=== PATIENT | male | born 1960 | race Caucasian/White ===

== ENCOUNTER 2018-01-10 17:00 | Observation (INO) ==
[2018-01-10] MEDS ORDERED: 0.9 % SODIUM CHLORIDE 1,000 ML IV ONE ×2 (17:56→20:14)
--- NOTE | 2018-01-10 18:00 | Emergency Department Note ---
Nausea/Vomiting/Diarrhea HPI - General Chief complaint: Nausea/Vomiting/Diarrhea Stated complaint: N/v abd pain Time Seen by Provider: 01/10/18 17:21 Source: patient, family Mode of arrival: wheelchair Limitations: no limitations - History of Present Illness HPI Narrative: This pleasant 57-year-old male comes to the emergency room with significant episodes of dizziness and weakness. He reports that onset began about a month and a half ago and he was seen by his primary care doctor. Episodes include that he seems to have almost a visual turning white and then seems to collapse with weakness. He is not had any major injuries from this but he is actually fallen or collapsed 10-12 times in this time. He was also seen by a neurologist, Dr. Jamie Rosas in [place]. He has been tried on antinausea medications including ondansetron and meclizine. He is also had some middle ear effusion and was given 2 different antibiotics, azithromycin on one occasion and I believe a penicillin on another. Episodes are not associated with any chest pain or palpitations. He feels like he is passing out. He does have some shortness of breath. His dizzy episodes do not seem to occur or be related to sudden changes in position or sudden movements of his head and neck. They are not associated with eating, pain or bowel movements. He today has had significant episodes of dry heaves and has had some of this off and on. As of 2 weeks ago he had already lost 14 pounds. Concern also included if there was a central pathology and he had an MRI done 3 days ago which reportedly was negative. He also suffers from some lower abdominal pain with some constipation or firm stools and this has been chronic. Abdominal pain is some crampy in nature and associated with these episodes. He denies hematochezia. REVIEW OF SYSTEMS: Denies fevers. He has some chills and sweats but this may be some related with his acute anxiety when he starts getting worked up about his multiple symptoms. Denies ear pain or throat pain. Sometimes some throat pain related to the emesis and dry heaves. Denies chest pain or palpitations. Denies cough. Shortness of breath has been during this 1-1/2 month. Denies wheezing or phlegm production. Denies dysuria. Peculiar symptom of not being able to have sensation or feeling of bowels leaving him when he has a bowel movement or urine as it leaves. He does have preserved sensation of needing to go or when he is full. Denies back pain Denies rashes. Denies headaches. Has felt quite weak. Admits to significant anxiety as well as depression.Has significant fatigue. Previously was on thyroid medication but is not currently. He does not recognize having been diagnosed with Graves' disease in the past. - Related Data Home Medications Medication Instructions Recorded Confirmed doxazosin 2 mg tablet 2 mg PO QDAY 11/22/17 01/10/18 gabapentin 400 mg capsule 1,600 mg PO BID cap 11/22/17 01/10/18 insulin aspart U-100 100 unit/mL 10 unit SUB-Q TID ml 11/22/17 01/10/18 subcutaneous solution lisinopril 40 mg tablet 40 mg PO QDAY 11/22/17 01/10/18 metformin 500 mg tablet 1,000 mg PO BID 11/22/17 01/10/18 pioglitazone 45 mg tablet 45 mg PO QDAY 11/22/17 01/10/18 ropinirole 1 mg tablet 1 mg PO TID 11/22/17 01/10/18 venlafaxine ER 37.5 mg 37.5 mg PO BID cap 11/22/17 01/10/18 capsule,extended release 24 hr Previous Rx's Medication Instructions Recorded meclizine 25 mg tablet 25 mg PO QID PRN #90 tab 01/09/18 ondansetron 4 mg disintegrating 4 mg PO Q4H PRN #30 tab 01/09/18 tablet Allergies Allergy/AdvReac Type Severity Reaction Status Date / Time acetaminophen [From Vicodin] AdvReac Intermediate Rash Verified 01/10/18 17:00 hydrocodone [From Vicodin] AdvReac Intermediate Rash Verified 01/10/18 17:00 Past Medical History - Past Medical History Medical history: Reports: CVA (Minor one in 1993), DM (Type II with complications including peripheral neuropathy and is on long-acting insulin Levemir +[id number] sliding scale.), hypertension, thyroid disease (Not on treatment currently), other (Pancreatitis 1996. Restless leg syndrome. Severe peripheral neuropathy in the feet. BPH. Insomnia. Pancreatitis 1996.). Denies: hyperlipidemia, myocardial infarction Psychiatric history: Reports: anxiety, depression Surgical history ED: Reports: orthopedic, other (2 foot surgeries, one shoulder surgery, 1 back surgery and 2 wrist surgeries.) Family history: Reports: cancer (Bladder cancer in father) - Social History smoking status: Former smoker Alcohol use: Reports: None Drug use: Reports: none. Denies: marijuana Physical Exam Limitations: no limitations General appearance: alert, in no apparent distress, malaise (Moderate. Not energetic.) Head: atraumatic, normocephalic Eye: Present: EOMI ENT: mucous membranes dry (Mildly) Neck: Present: trachea midline. Absent: lymphadenopathy, thyromegaly Respiratory: Present: normal lung sounds bilaterally. Absent: respiratory distress, wheezes, stridor, accessory muscle use, prolonged expiratory phase Cardiovascular: Present: regular rate, normal rhythm. Absent: systolic murmur, diastolic murmur Abdominal: Present: soft, tenderness (Mild in the lower quadrants bilaterally and suprapubic area.). Absent: distention, guarding, rebound, rigidity, organomegaly, mass Extremities: Absent: pedal edema, pretibial edema, calf tenderness Back: Absent: CVA tenderness (R), CVA tenderness (L), spinous process tenderness Neurological: Present: alert, oriented X3 Psychiatric: Present: flat affect (Mildly so) Skin: Present: warm, mottled (Of the toes and distal foot on the left.) Course Vital Signs Temperature 97.9 F 01/10/18 17:00 Pulse Rate 102 H 01/10/18 17:00 Respiratory Rate 18 01/10/18 17:00 Blood Pressure 77/54 01/10/18 17:00 Pulse Oximetry (%) 94 01/10/18 17:00 Temperature 97.9 F 01/10/18 17:00 Pulse Rate 94 H 18 18:05 Respiratory Rate 7 L 18 18:05 Blood Pressure 134/109 01/10/18 18:05 Pulse Oximetry (%) 93 01/10/18 18:05 Nausea/Vomiting/Diarrhea - [facility] Narrative Medical decision making narrative: Patient's labs included an improvement in his sodium from yesterday to 132, was 129 yesterday. Chloride also improved to 88 as it was 85 yesterday. Anion gap also improved to 19 as it was 22 yesterday. However, BUN worsened to 35, was 27 and creatinine worsened to 1.7 as it was 1.3. Troponin normal at 0.01. C- reactive protein was 0.5. X-ray demonstrated a question of left parenchymal infiltrate. CT scan did not confirm this. It did demonstrate some calcified coronary artery disease. I discussed these findings and circumstances with hospitalist, Dr. Cheung, who kindly accepted this patient to medical floor observation because of his dehydration, severe dizziness and weakness, inability to ambulate and stand because of these circumstances. Hopefully with fluid resuscitation he can improve. He may have a rather significant or severe autonomic neuropathy. He may have gastroparesis. Pending at this time still is an abdominal x-ray looking for his stool pattern. Additional workup may need to include neurologic assessment of his perineum, may need to get GI workup of his gut. He did have a finding of moderate to severe exophthalmos. Consider obtaining a TSH since this may not have been monitored of recent. - Lab Data Lab results reviewed: Yes I reviewed the patient's lab results. Result diagrams: 01/10/18 18:04 01/10/18 18:04 Lab Results 01/10/18 01/10/18 01/10/18 Range/Units 18:04 18:04 18:04 WBC 10.6 (4.5-11.0) K/mcL RBC 4.11 L (4.50-5.90) M/mcL Hgb 12.9 L (13.5-16.5) g/dL Hct 37.6 L (41.0-55.0) % MCV 91.4 (80.0-100.0) fL MCH 31.5 (26.0-34.0) pg MCHC 34.5 (31.0-36.0) g/dL RDW 13.2 (11.5-14.5) % Plt Count 398 (140-440) K/mcL MPV 8.0 (7.4-10.4) fL Gran % 69.5 (38.0-78.0) % Lymph % (Auto) 19.7 (15.5-49.0) % [place] % (Auto) 10.4 (1.0-12.0) % Eos % (Auto) 0.1 (0.0-7.0) % Baso % (Auto) 0.3 (0.0-2.0) % Gran # 7.3 (1.8-8.0) K/mcL Lymph # (Auto) 2.1 (1.5-4.8) K/mcL [place] # (Auto) 1.1 H (0.1-0.9) K/mcL Eos # (Auto) 0 (0.0-0.7) K/mcL Baso # (Auto) 0 (0.0-0.3) K/mcL Sodium 132 L (133-145) mmol/L Potassium 3.5 (3.3-5.1) mmol/L Chloride 88 L (96-108) mmol/L Carbon Dioxide 25 (22-30) mmol/L Anion Gap 19.0 H (8-16) BUN 35 H (6-20) mg/dl Creatinine 1.7 H (0.7-1.2) mg/dl GFR Calculation 43 Glucose 279 H (70-105) mg/dL Calcium 9.5 (8.6-10.4) mg/dl Magnesium 1.7 (1.6-2.5) mg/dL Total Bilirubin 0.6 (0.0-1.0) mg/dL AST 34 (0-37) U/l ALT 22 (0-40) U/l Alkaline Phosphatase 67 (39-117) U/L Troponin T 0.01 (0-0.03) ng/ml C-Reactive Protein 0.5 (0.0-0.8) mg/dl Total Protein 6.8 (5.9-8.4) gm/dL Albumin 4.2 (3.2-5.2) gm/dL Globulin 2.6 (2.2-3.7) gm/dL Albumin/Globulin Ratio 1.6 (1.0-2.3) - Radiology Data Radiology results reviewed: Yes I reviewed the patient's radiology results. - EKG Data EKG results narrative: No acute coronary syndrome findings. This will be read by a loading unit operator crimping. Disposition Pt seen by [facility] only: No Clinical Impression: Dehydration, Electrolyte disorder, Calcification of coronary artery, Weakness, History of BPH, Exophthalmos of both eyes Nausea & vomiting Qualifiers: Vomiting type: unspecified Vomiting Intractability: intractable Qualified Code( s): R11.2 - Nausea with vomiting, unspecified CRF (chronic renal failure) Qualifiers: Chronic kidney disease stage: stage 2 (mild) Qualified Code(s): N18.2 - Chronic kidney disease, stage 2 (mild) Anemia Qualifiers: Anemia type: unspecified type Qualified Code(s): D64.9 - Anemia, unspecified Abdominal pain Qualifiers: Abdominal location: lower abdomen, unspecified Qualified Code(s): R10.30 - Lower abdominal pain, unspecified Disposition: Xfer As Inpt ([facility]) Condition: Fair Referrals: Susan Dickson [Primary Care Provider] -
--- NOTE | 2018-01-10 18:12 | XRay Report ---
INDICATION: Dyspnea TECHNIQUE: AP chest x-ray,portable COMPARISON: None FINDINGS:Subtle left suprahilar density may be prominent vessels but a left perihilar mass is possible. Chest CT scan is recommended. Lungs are otherwise negative. Right lung is clear. Heart size and vascularity are normal. No pulmonary edema. No pulmonary congestion. No pleural fluid. IMPRESSION: 1. Possible left perihilar parenchymal density. Recommend CT scan 2. Otherwise negative AP portable chest x-ray Interpreted and Authenticated by: Levi Martinez 01/10/18
[2018-01-10] MEDS ORDERED: ONDANSETRON 4 MG/2 ML VIAL IV ONE (18:29)
[2018-01-10 18:37] LABS: Basophils # (Auto) 0 K/mcL (0.0-0.3); Basophils % (Auto) 0.3 % (0.0-2.0); Eosinophils # (Auto) 0 K/mcL (0.0-0.7); Eosinophils % (Auto) 0.1 % (0.0-7.0); Granulocytes % (Auto) 69.5 % (38.0-78.0); Lymphocytes # (Auto) 2.1 K/mcL (1.5-4.8); Lymphocytes % (Auto) 19.7 % (15.5-49.0); Mean Cell Volume 91.4 fL (80.0-100.0); Mean Corpuscular HGB Conc 34.5 g/dL (31.0-36.0); Mean Corpuscular Hemoglobin 31.5 pg (26.0-34.0); Monocytes # (Auto) 1.1 K/mcL (0.1-0.9); Monocytes % (Auto) 10.4 % (1.0-12.0); Platelet Count 398 K/mcL (140-440); RBC 4.11 M/mcL (4.50-5.90); Red Cell Distribution Width 13.2 % (11.5-14.5)
[2018-01-10 19:14] LABS: ALT/SGPT 22 U/l (0-40); Albumin 4.2 gm/dL (3.2-5.2); Albumin/Globulin Ratio 1.6 (1.0-2.3); Alkaline Phosphatase 67 U/L (39-117); Blood Urea Nitrogen 35 mg/dl (6-20); C-Reactive Protein 0.5 mg/dl (0.0-0.8)
--- NOTE | 2018-01-10 19:16 | Cat Scan Report ---
CLINICAL INFORMATION: Smoking history. Cough. Abnormal chest x-ray COMPARISON: Chest x-ray dated 01/10/2018 TECHNIQUE: Axial noncontrast enhanced images through the chest. Sagittally and coronally reformatted images. MIP reformatted images. FINDINGS: Possible left perihilar mass identified on previous chest x-ray. Lungs are negative. No pulmonary parenchymal mass or focal infiltrate. Density on plain radiograph is secondary to vascular structures. There is an 8 mm density adjacent to the left upper lobe pulmonary artery which is probably a lymph node. This is not well visualized on this noncontrast enhanced study. No definite centrilobular emphysema. No bronchiectasis. No honeycombing. No focal abnormality. There is severe calcified atherosclerotic coronary artery disease. This is advanced for age. No pleural fluid. No pericardial fluid. No axillary or supraclavicular adenopathy. Upper abdomen is negative. Thoracic spine is negative. There is multilevel degenerative disc disease. No thoracic compression fractures. IMPRESSION: 1. No left perihilar pulmonary parenchymal mass. Lungs are negative. No parenchymal mass or infiltrate 2. Calcified coronary artery disease The exam was performed using radiation dose optimization techniques including, but not limited to, automated exposure control, adjustment of the mA and/or kV according to patient size and use of iterative reconstruction technique. Interpreted and Authenticated by: Levi Martinez 01/10/18
[2018-01-10] MEDS ORDERED: PROCHLORPERAZINE 10 MG/2 ML VIAL IV ONE (19:52)
--- NOTE | 2018-01-10 20:02 | Internal Med History&Physical ---
Medical - H&P: [facility] Patient information: Note initiated : 01/10/18 at 7:56 pm Service Date, if different from initiated Date: [] Patient: Abdi Reese a 57 y/o M admitted on for N/v abd pain. Chief Complaint: Nausea, vomiting, orthostasis and frequent falls. History of present illness: Mr. Reese is a 57 year old male who presents with months to years of worsening orthostasis and associated post prandial NV. Patient has had frequent falls and and describes overt syncope. Patient has been treated for positional vertigo and treated with meclizine and steroids. Patient states he recently had a MRI head. Patient denies headache or focal weakness. Patient does report positional palpitations. Patient has severe peripheral neuropathy complicating DM. Patient denies previous diagnosis of gastroparesis and has not tried promotility agents to his knowledge. Patient was noted to be orthostatic and have acute kidney injury. Patient is admitted for the same. Discussed with ED physician and dope dry house operator. Patient is seen in the emergency room. Patient's family are present. Discussed diagnosis and planned treatment. Location-generalized and abdomen, severity-severe, duration-months to years but worsening and associated symptoms-as above. All systems: reviewed and no additional remarkable complaints except as stated - Neurological Neurological: Present: disequilibrium, dizziness, frequent falls, lack of coordination, numbness, paresthesias, syncope, tingling, weakness Medical - H&P: H Medical history: DM, HTN, Neuropathy, Depression and CKD stage2 Family history: reviewed and not pertinent Have you smoked in the last 12 months: No Drug use: none Medical - H&P: Meds Home Medications Medication Instructions Recorded Confirmed Type doxazosin 2 mg tablet 2 mg PO QDAY 11/22/17 01/10/18 History gabapentin 400 mg capsule 1,600 mg PO BID cap 11/22/17 01/10/18 History insulin aspart U-100 100 unit/mL 10 unit SUB-Q TID ml 11/22/17 01/10/18 History subcutaneous solution lisinopril 40 mg tablet 40 mg PO QDAY 11/22/17 01/10/18 History metformin 500 mg tablet 1,000 mg PO BID 11/22/17 01/10/18 History pioglitazone 45 mg tablet 45 mg PO QDAY 11/22/17 01/10/18 History ropinirole 1 mg tablet 1 mg PO TID 11/22/17 01/10/18 History venlafaxine ER 37.5 mg 37.5 mg PO BID cap 11/22/17 01/10/18 History capsule,extended release 24 hr meclizine 25 mg tablet 25 mg PO QID PRN #90 tab 01/09/18 01/10/18 Rx ondansetron 4 mg disintegrating 4 mg PO Q4H PRN #30 tab 01/09/18 01/10/18 Rx tablet Allergies Allergy/AdvReac Type Severity Reaction Status Date / Time acetaminophen [From Vicodin] AdvReac Intermediate Rash Verified 01/10/18 17:00 hydrocodone [From Vicodin] AdvReac Intermediate Rash Verified 01/10/18 17:00 Medical - H&P: Exam - Constitutional Vitals: Temp Pulse Resp BP Pulse Ox 97.9 F 88 20 99/73 95 01/10/18 17:00 01/10/18 19:45 01/10/18 19:45 01/10/18 19:45 01/10/18 19:45 General appearance: obese - Head Head exam: Present: atraumatic, normocephalic - Eye Eye exam: Present: EOMI, PERRL Additional comments: No nystagmus - ENT ENT exam: Present: mucous membranes dry - Expanded ENT Exam Mouth exam: Present: dry mucosa - Neck Neck exam: Present: full ROM - Respiratory Respiratory exam: Present: normal respiratory exam - Cardiovascular Cardiovascular exam: Present: systolic murmur, tachycardia - GI/Abdominal GI/Abdominal exam: Present: normal bowel sounds, soft, diminished bowel sounds, hypoactive bowel sounds Additional comments: Non tender and without rebound - Rectal Rectal exam: Present: deferred - Extremities Exam Extremities exam: Present: full ROM Additional comments: Delayed capillary refill - Neurological Exam Neurological exam: Present: alert, oriented X3 - Expanded Neurological Exam Patient oriented to: Present: person, place, time Speech: Present: fluid speech Cerebellar function: finger to nose: Normal Sensory exam: LE 2 point discrimination: Abnormal Left, Abnormal Right - Skin Skin exam: Present: dry Medical - H&P: Reslt - Labs CBC & Chem 7: 01/10/18 18:04 01/10/18 18:04 Labs: Short CBC 01/10/18 Range/Units 18:04 WBC 10.6 (4.5-11.0) K/mcL Hgb 12.9 L (13.5-16.5) g/dL Hct 37.6 L (41.0-55.0) % Plt Count 398 (140-440) K/mcL BMP 01/10/18 18:04 Sodium 132 L Potassium 3.5 Chloride 88 L Carbon Dioxide 25 BUN 35 H Creatinine 1.7 H Glucose 279 H Calcium 9.5 Cardiac Enzymes 01/10/18 Range/Units 18:04 Troponin T 0.01 (0-0.03) ng/ml Liver Function 01/10/18 Range/Units 18:04 Total Bilirubin 0.6 (0.0-1.0) mg/dL AST 34 (0-37) U/l ALT 22 (0-40) U/l Alkaline Phosphatase 67 (39-117) U/L Albumin 4.2 (3.2-5.2) gm/dL - EKG Data EKG shows normal: sinus rhythm Rate: tachycardia Medical - H&P: A/P (1) Acute kidney injury (nontraumatic) Current visit: Yes Status: Acute (2) Syncopal episodes Current visit: Yes Status: Acute (3) Gastroparesis Current visit: Yes Status: Acute - Narrative A/P Narrative: Syncope and acute kidney injury secondary to suspected gastroparesis vs autonomic dysfunction - Observation admission - IVF - Trend labs - No VTE prophylaxis - Trial of Reglan - Hold Metformin - Consider gastric emptying study (outpt)
--- NOTE | 2018-01-10 20:05 | XRay Report ---
CLINICAL INFORMATION: Abdominal pain TECHNIQUE: AP supine abdomen COMPARISON: None. FINDINGS: Bowel gas pattern is unremarkable. No mechanical small bowel obstruction. No dilated gas-filled small bowel. No biliary or portal venous gas. No pneumatosis. No pathologic calcifications. Severe degenerative disc disease in the lower lumbar spine. Sacrum and pelvis are negative IMPRESSION: 1. Nonspecific and nonobstructive bowel gas pattern 2. No focal abnormality Interpreted and Authenticated by: Levi Martinez 01/10/18
[2018-01-10 21:15] LABS: Appearance,Urine HAZY; Bacteria,Urine 0 /hpf (0); Bilirubin,Urine NEG (NEG); Color,Urine AMBER; Glucose,Urine (UA) 150 mg/dL (NEG); Ictotest,Urine NEG (NEG); Leukocyte Esterase,Urine NEG /uL (NEG); Mucus,Urine MANY /hpf (0); Protein,Urine 100 mg/dL (NEG); Specific Gravity,Urine 1.026 (1.000-1.035); Sperm,Urine PRESENT /hpf (ABSENT); Urine Blood NEG mg/dL (<0.03); Urine Hyaline Cast 48 /lpf (0-2); Urine RBC 2 /hpf (0-1); Urine Squamous Epithelial Cell < 1 /hpf (0-4); Urine WBC 0 /hpf (0-4)
[2018-01-10] MEDS: INSULIN LISPRO 1 UNIT/0.01 ML UNIT SQ SCH (21:32)
[2018-01-10] MEDS: NACL 0.9% W/KCL 20MEQ 1,000 ML IV SCH (21:34)
[2018-01-10] MEDS: GABAPENTIN 400 MG CAPSULE PO SCH (22:46)
[2018-01-10] MEDS: VENLAFAXINE 37.5 MG TAB.ER.24H PO SCH (22:46)
[2018-01-10] MEDS: 0.9 % SODIUM CHLORIDE 10 ML SYRINGE IV SCH (22:47)
[2018-01-10] MEDS: rOPINIRole 1 MG TABLET PO SCH (22:47)
[2018-01-10] MEDS: METOCLOPRAMIDE 10 MG TABLET PO SCH (23:05)
[2018-01-11] MEDS ORDERED: 0.9 % SODIUM CHLORIDE 1,000 ML IV ONE (00:54)
[2018-01-11] MEDS: 0.9 % SODIUM CHLORIDE 10 ML SYRINGE IV SCH ×2 (05:17→16:32)
[2018-01-11] MEDS: METOCLOPRAMIDE 10 MG TABLET PO SCH ×5 (05:20→17:31)
[2018-01-11] MEDS: NACL 0.9% W/KCL 20MEQ 1,000 ML IV SCH ×3 (05:22→20:00)
--- NOTE | 2018-01-11 07:43 | Internal Med Progress Note ---
Medical - PN: Subj Patient information: Note initiated : 01/11/18 at 7:41 am Service Date, if different from initiated Date: [] Patient: Abdi Reese 57 y/o M admitted on 01/10/18 for N/v abd pain. Chief Complaint: Patient states his nausea has resolved. Patient had episode of syncope while up to bathroom associated with hypotension last PM. Labs are pending. - Constitutional Vitals: Vital Signs Temp Pulse Resp BP Pulse Ox 97.6 F 85 16 115/65 96 01/11/18 06:51 01/11/18 04:18 01/11/18 06:51 01/11/18 06:51 01/11/18 06:51 Period Temp Pulse Resp BP Sys/Goff Pulse Ox Last 24 Hr 97.6 F-98.8 F 75-102 7-20 53-156/28-109 88-98 Intake and Output 01/10/18 01/11/18 01/11/18 21:59 05:59 13:59 Intake Total 1271 / 1271 1450 / 1450 Output Total 125 / 125 Balance 1271 / 1271 1325 / 1325 Weight 282 lb Intake & Output: Intake & Output 01/10/18 01/11/18 01/11/18 21:59 05:59 13:59 Intake Total 1271 / 1271 1450 / 1450 Output Total 125 / 125 Balance 1271 / 1271 1325 / 1325 Weight 282 lb Intake: IV 1271 / 1271 1000 / 1000 Sodium Chloride 0.9% 1,000 ml @ 1271 / 1271 250 mls/hr IV .Q4H ONE Rx#: [id number] NaCl 0.9% W/KCl 20Meq 1000ML 1, 1000 / 1000 000 ml @ 150 mls/hr IV .Q6H40M [facility] Rx#:[id number] Oral 450 / 450 Output: Urine Catheter Amount 125 / 125 General appearance: obese - Neck Neck exam: Present: full ROM - Respiratory Respiratory exam: Present: normal respiratory exam - Cardiovascular Cardiovascular exam: Present: normal rate and rhythm - GI/Abdominal GI/Abdominal exam: Present: normal bowel sounds, soft, hypoactive bowel sounds - Extremities Exam Extremities exam: Present: full ROM, normal capillary refill - Neurological Exam Neurological exam: Present: alert, oriented X3 - Skin Skin exam: Present: dry Medical - PN: Obj Da - Labs CBC & Chem 7: 01/10/18 18:04 01/10/18 18:04 Labs: Abnormal Lab Results 01/10/18 01/10/18 01/10/18 20:15 18:04 18:04 RBC 4.11 L Hgb 12.9 L Hct 37.6 L [facility] # (Auto) 1.1 H Sodium 132 L Chloride 88 L Anion Gap 19.0 H BUN 35 H Creatinine 1.7 H Glucose 279 H Urine Protein 100 A Urine Glucose (UA) 150 A Urine Ketones 5/tr A Urine Urobilinogen 2.0 A Urine RBC 2 H Hyaline Casts 48 H Urine Mucus Many A Urine Sperm Present A Meds: Medications Diagnostic Test (Pha) (Accu-Chek) 1 each FS ACHS [facility] Gabapentin (Neurontin) 1,600 mg PO BID [facility] Last Admin: 01/10/18 22:46 Dose: Not Given Potassium Chloride/Sodium Chloride (Nacl 0.9% W/Kcl 20meq 1000ml) 1,000 mls @ 150 mls/hr IV .Q6H40M [facility] Last Admin: 01/11/18 05:22 Dose: 150 mls/hr Insulin Human Lispro (Humalog) 10 unit SQ TIDAC [facility] Last Admin: 01/10/18 21:32 Dose: 7 unit Metoclopramide HCl (Reglan) 10 mg PO Q6 [facility] Last Admin: 01/11/18 05:49 Dose: 10 mg Ropinirole HCl (Requip) 1 mg PO TID [facility] Last Admin: 01/10/18 22:47 Dose: Not Given Sodium Chloride (Saline Flush) 10 ml IV Q8 [facility] Last Admin: 01/11/18 05:17 Dose: Not Given Venlafaxine HCl (Effexor Xr) 37.5 mg PO BID [facility] Last Admin: 01/10/18 22:46 Dose: Not Given Medical - PN: A/P - Time Spent With Patient Total time spent is greater than 50% in coordination of care (as documented) at patient's floor/unit and/or counseling patient: (1) Acute kidney injury (nontraumatic) Status: Acute Current Visit: Yes (2) Syncopal episodes Status: Acute Current Visit: Yes (3) Gastroparesis Status: Acute Current Visit: Yes - Narrative A/P Narrative: Gastroparesis with acute kidney injury and recurrent syncope complicating DM - Continue IVF for 24 hours - Trend labs (including todays) - Mobilize - Continue Reglan - Home 01/12/18? Medical - PN: Qual - Stroke Symptom Onset Unknown: No - VTE Deep Vein Thrombosis/Pulmonary Embolism Present on Admission: No
[2018-01-11 08:13] LABS: Blood Urea Nitrogen 39 mg/dl (6-20)
[2018-01-11] MEDS: INSULIN LISPRO 1 UNIT/0.01 ML UNIT SQ SCH ×3 (10:03→17:31)
[2018-01-11] MEDS: GABAPENTIN 400 MG CAPSULE PO SCH ×2 (10:04→21:00)
[2018-01-11] MEDS: VENLAFAXINE 37.5 MG TAB.ER.24H PO SCH ×2 (10:05→21:00)
[2018-01-11] MEDS: rOPINIRole 1 MG TABLET PO SCH ×3 (10:05→21:00)
[2018-01-12] MEDS: VENLAFAXINE 37.5 MG TAB.ER.24H PO SCH (09:19)
[2018-01-12] MEDS: GABAPENTIN 400 MG CAPSULE PO SCH (09:22)
[2018-01-12] MEDS: NACL 0.9% W/KCL 20MEQ 1,000 ML IV SCH ×4 (12:00→18:51)
[2018-01-12] MEDS: INSULIN LISPRO 1 UNIT/0.01 ML UNIT SQ SCH ×3 (12:21→19:38)
[2018-01-12] MEDS: METOCLOPRAMIDE 10 MG TABLET PO SCH (12:21)
[2018-01-12] MEDS: rOPINIRole 1 MG TABLET PO SCH ×2 (12:22→15:58)
--- NOTE | 2018-01-12 13:38 | Discharge Summary ---
Medical - DS: Prov Patient information: Note initiated : 01/12/18 at 11:18 am Service Date, if different from initiated Date: [] Patient: Abdi Reese a 57 y/o M admitted on 01/10/18 for N/v abd pain. Chief Complaint: Patient is eating and ambulatory without N/V, syncope or near syncope. Date of admission: 01/10/18 20:31 Discharge date: 01/12/18 Primary care physician: Susan Dickson Consults: 01/10/18 19:40 Consult to Physician [CONS] Stat Comment: Consulting Provider: Ralph Cheung Reason For Exam: Physician to Consult Medical - DS: Meds - Discharge Medications Prescriptions: Metoclopramide [Reglan] 10 mg PO Q6 #120 tab Active and Home Medications: Home Medications insulin aspart U-100 100 unit/mL subcutaneous solution 10 unit SUB-Q TID ml [History Confirmed 01/10/18 Last Taken Unknown] lisinopril 40 mg tablet 40 mg PO QDAY 11/22/17 [History Confirmed 01/10/18 Last Taken 12/30/17] ropinirole 1 mg tablet 1 mg PO HSP PRN 11/22/17 [History Confirmed 01/10/18 Last Taken 01/09/18 20:00] venlafaxine ER 37.5 mg capsule,extended release 24 hr 37.5 mg PO BID cap [History Confirmed 01/10/18 Last Taken 01/10/18 10:30] Accu-Chek 1 each FS ACHS strip 01/12/18 [Rx Last Taken Unknown] Metoclopramide [Reglan] 10 mg PO Q6 #120 tab 01/12/18 [Rx Last Taken Unknown] Medical - DS: Hosp Hospital course: Mr. Reese is a 57 year old M admitted with syncope, falls persistent N/V and acute kidney injury. Patient was treated with Reglan for gastroparesis and IVF. Patient improved and was ambulatory and not having N/V at discharge. Patient is discahrged to home with plans for follow up with PCP re repeat chemistries and restarting oral diabetic agents. Discharge diagnosis: Gastroparesis - Time Spent with Patient Total time spent providing and/or coordinating discharge services: Medical - DS: Exam - Constitutional Vitals: Vital Signs Temp Pulse Resp BP Pulse Ox 01/11/18 16:00 98.4 F 16 132/73 95 01/11/18 13:10 86 20 114/66 96 01/11/18 13:05 87 20 127/75 94 01/11/18 13:00 98.8 F 78 20 143/74 97 01/11/18 12:00 98.3 F 16 134/75 97 Intake and Output 01/11/18 01/12/18 01/12/18 21:59 05:59 13:59 Intake Total 750 / 750 Output Total 500 / 500 Balance 250 / 250 Intake: Oral 750 / 750 Output: Urine Catheter Amount 500 / 500 Other: Meal Dinner Percent of Meal Consumed 100% Feeding Ability Independent General appearance: no acute distress, obese - GI/Abdominal GI/Abdominal exam: Present: hypoactive bowel sounds - Skin Skin exam: Present: warm Medical - DS: A/P - Patient/Caregiver Discharge Instructions Activity: increase activity as tolerated Diet: Consistent Carbohydrate Prescriptions: Metoclopramide [Reglan] 10 mg PO Q6 #120 tab - Problem Maintenance (1) Acute kidney injury (nontraumatic) Status: Acute (2) Syncopal episodes Status: Acute (3) Gastroparesis Status: Acute - Follow up Plan Follow up with: Susan Dickson [Primary Care Provider] - Disposition: Home, Self-Care Prognosis: Fair Rehab Potential: Good Overall status at discharge: patient is progressing back to baseline Medical - DS: Qual - VTE Deep Vein Thrombosis/Pulmonary Embolism Present on Admission: No
[2018-01-12] MEDS: 0.9 % SODIUM CHLORIDE 10 ML SYRINGE IV SCH ×3 (18:28→19:58)
[2018-01-14 09:35] LABS: Blood Urea Nitrogen 19
== END 2018-01-12 16:55 | disposition home or self-care (01) ==
LOC: ED 17:00 → MEDSUR 17:00
PROVIDERS: ADMIT Internal Medicine; ATTEND Internal Medicine

== ENCOUNTER 2018-02-08 22:35 | Observation (INO) ==
[2018-02-08] MEDS ORDERED: IOPAMIDOL 100 ML BOTTLE IV ONE (22:36)
[2018-02-08] MEDS ORDERED: METOCLOPRAMIDE 10 MG/2 ML VIAL IV ONE (22:51)
[2018-02-08] MEDS ORDERED: PANTOPRAZOLE 40 MG VIAL IV ONE (22:51)
[2018-02-08] MEDS ORDERED: 0.9 % SODIUM CHLORIDE 2,000 ML IV ONE (22:51)
[2018-02-08] MEDS ORDERED: HYDROmorphone 2 MG/ML VIAL IV PRN (22:51)
[2018-02-08] MEDS ORDERED: MEPERIDINE 25 MG/ML SYRINGE IV ONE ×2 (23:06→23:48)
[2018-02-08] MEDS ORDERED: MEPERIDINE 50 MG/ML INJECTION ONE (23:13)
[2018-02-08] MEDS ORDERED: INSULIN REGULAR, HUMAN 1 UNIT/0.01 ML UNIT IV ONE (23:28)
[2018-02-08 23:31] LABS: Basophils # (Auto) 0 K/mcL (0.0-0.3); Basophils % (Auto) 0 % (0.0-2.0); Eosinophils # (Auto) 0 K/mcL (0.0-0.7); Eosinophils % (Auto) 0 % (0.0-7.0); Granulocytes % (Auto) 90.4 % (38.0-78.0); Lymphocytes % (Auto) 7.1 % (15.5-49.0); Mean Cell Volume 89.8 fL (80.0-100.0); Mean Corpuscular Hemoglobin 30.5 pg (26.0-34.0); Monocytes # (Auto) 0.3 K/mcL (0.1-0.9); Monocytes % (Auto) 2.5 % (1.0-12.0); Platelet Count 518 K/mcL (140-440); RBC 4.67 M/mcL (4.50-5.90); Red Cell Distribution Width 13.6 % (11.5-14.5)
[2018-02-08] MEDS ORDERED: hydrALAZINE 20 MG/ML VIAL IV ONE (23:39)
[2018-02-08 23:53] LABS: ALT/SGPT 16 U/l (0-40); Albumin 4.4 gm/dL (3.2-5.2); Albumin/Globulin Ratio 1.1 (1.0-2.3); Alkaline Phosphatase 110 U/L (39-117); Amylase 45 U/L (28-100); Blood Urea Nitrogen 16 mg/dl (6-20); Lipase 18 U/L (7-60)
[2018-02-09] MEDS ORDERED: MEPERIDINE 50 MG/ML INJECTION ONE (00:26)
[2018-02-09] MEDS ORDERED: INSULIN REGULAR, HUMAN 50 UNIT in 0.9 % SODIUM CHLORIDE 99.5 ML IV SCH ×2 (00:45→06:17)
--- NOTE | 2018-02-09 01:13 | Emergency Department Note ---
Abdominal Pain HPI - General Chief Complaint: Abdominal Pain Stated Complaint: n/v abd pain Time Seen by Provider: 02/08/18 22:51 Source: patient Mode of arrival: ambulatory Limitations: no limitations - History of Present Illness HPI Narrative: 57-year-old male diabetic patient with known gastroparesis comes in for nausea and vomiting all day. Having malaise chills and sweats. Severe pain all over his gut area-he states Demerol works better than the allotted for him. He took some 7-Up as well as some other home remedies without help. Last bowel movement was yesterday and was normal. Blood pressure is up significantly - Related Data Home Medications Medication Instructions Recorded Confirmed insulin aspart U-100 100 unit/mL 10 unit SUB-Q TID ml 11/22/17 02/09/18 subcutaneous solution ropinirole 1 mg tablet 1 mg PO HSP PRN 11/22/17 02/09/18 venlafaxine ER 37.5 mg 37.5 mg PO BID cap 11/22/17 02/09/18 capsule,extended release 24 hr Gabapentin [Neurontin] 400 mg PO BID 01/22/18 02/09/18 Zofran ODT 02/08/18 Previous Rx's Medication Instructions Recorded Accu-Chek 1 each FS ACHS strip 01/12/18 Metoclopramide [Reglan] 10 mg PO Q6 #120 tab 01/12/18 Allergies Allergy/AdvReac Type Severity Reaction Status Date / Time acetaminophen [From Vicodin] AdvReac Intermediate Rash Verified 02/08/18 22:40 hydrocodone [From Vicodin] AdvReac Intermediate Rash Verified 02/08/18 22:40 Review of Systems All systems ED: reviewed and negative except as stated. Abdominal Pain PMH - Past Medical History Attestation: Yes: The following information was validated with the patient. Medical history: Reports: CVA (Minor one in 1993), DM (Type II with complications including gastroparesis, kidney disease, peripheral neuropathy and is on long-acting insulin Levemir +[id number] sliding scale.), hypertension, renal disease, thyroid disease (Not on treatment currently), other ( Pancreatitis 1996. Restless leg syndrome. Impetigo. BPH. Insomnia). Denies : hyperlipidemia, myocardial infarction Surgical history ED: Reports: orthopedic, other (Back surgery), other (Surgery for lymphoma) Psychiatric history: Reports: anxiety, depression - Social History Smoking status: Former smoker Alcohol use: Reports: None Drug use: Reports: none. Denies: marijuana Physical Exam Ill-appearing male dry heaving. Normocephalic atraumatic. Conjunctive are clear sclerae white and nonicteric. Exophthalmus. No nasal congestion or discharge. Oropharynx with dry mucous membranes. Neck is supple without lymphadenopathy or thyromegaly. Heart is regular rate and rhythm no murmur appreciated. Lungs are clear to auscultation bilaterally without wheezes rales rhonchi or respiratory distress. Abdomen is soft mildly diffusely tender but especially so the epigastrium. No peritoneal signs or guarding. +2 radial pulse. No pedal edema. Alert oriented able to answer questions appropriately Limitations: no limitations Course Vital Signs Temperature 97.7 F 02/08/18 22:36 Pulse Rate 115 H 02/08/18 22:36 Respiratory Rate 20 02/08/18 22:36 Blood Pressure 220/120 02/08/18 22:36 Pulse Oximetry (%) 97 02/08/18 22:36 Temperature 100.1 F H 02/09/18 06:16 Pulse Rate 100 H 02/09/18 05:05 Respiratory Rate 23 H 02/09/18 06:23 Blood Pressure 189/91 02/09/18 06:16 Pulse Oximetry (%) 95 02/09/18 06:23 Abdominal Pain - Lab Data Lab results reviewed: Yes I reviewed the patient's lab results. Result diagrams: 02/09/18 06:32 02/09/18 06:32 Lab Results 02/08/18 02/08/18 02/08/18 Range/Units 22:55 22:55 22:55 WBC 13.6 H (4.5-11.0) K/mcL RBC 4.67 (4.50-5.90) M/mcL Hgb 14.3 (13.5-16.5) g/dL Hct 41.9 (41.0-55.0) % POC Hct 41.0 (41.0-55.0) % MCV 89.8 (80.0-100.0) fL MCH 30.5 (26.0-34.0) pg MCHC 34.0 (31.0-36.0) g/dL RDW 13.6 (11.5-14.5) % Plt Count 518 H (140-440) K/mcL MPV 7.8 (7.4-10.4) fL Gran % 90.4 H (38.0-78.0) % Lymph % (Auto) 7.1 L (15.5-49.0) % [place] % (Auto) 2.5 (1.0-12.0) % Eos % (Auto) 0 (0.0-7.0) % Baso % (Auto) 0 (0.0-2.0) % Gran # 12.3 H (1.8-8.0) K/mcL Lymph # (Auto) 1.0 L (1.5-4.8) K/mcL [place] # (Auto) 0.3 (0.1-0.9) K/mcL Eos # (Auto) 0 (0.0-0.7) K/mcL Baso # (Auto) 0 (0.0-0.3) K/mcL VBG Lactic Acid 3.1 H (0.5-2.2) mmol/L POC Sodium 129 L (133-145) mmol/L Sodium 128 L (133-145) mmol/L POC Potassium 3.7 (3.3-5.1) mmol/L Potassium 3.8 (3.3-5.1) mmol/L POC Chloride 92 L (96-108) mmol/L Chloride 83 L (96-108) mmol/L Carbon Dioxide 20 L (22-30) mmol/L POC Total CO2 22 (22-30) mmol/L Anion Gap 25.0 H (8-16) POC BUN 17 (6-20) mg/dl BUN 16 (6-20) mg/dl Creatinine 1.1 (0.7-1.2) mg/dl POC Creatinine 0.8 (0.7-1.2) mg/dl GFR Calculation 73 Glucose 480 H* (70-105) mg/dL POC Glucose 510 H* (70-105) mg/dL Calcium 10.3 (8.6-10.4) mg/dl POC WB Ioniz Calcium 0.99 L (1.16-1.32) mmol/L Total Bilirubin 0.6 (0.0-1.0) mg/dL AST 17 (0-37) U/l ALT 16 (0-40) U/l Alkaline Phosphatase 110 (39-117) U/L Total Protein 8.4 (5.9-8.4) gm/dL Albumin 4.4 (3.2-5.2) gm/dL Globulin 4.0 H (2.2-3.7) gm/dL Albumin/Globulin Ratio 1.1 (1.0-2.3) Amylase 45 (28-100) U/L Lipase 18 (7-60) U/L Beta-Hydroxybutyrate (< 0.27) mmol/L Urine Color Urine Appearance Urine pH (5.0-9.0) Ur Specific [place] (1.000-1.035) Urine Protein (NEG) mg/dL Urine Glucose (UA) (NEG) mg/dL Urine Ketones (NEG) mg/dL Urine Occult Blood (<0.03) mg/dL Urine Nitrate (NEG) Urine Bilirubin (NEG) mg/dL Urine Urobilinogen (NEG) mg/dL Ur Leukocyte Esterase (NEG) /uL Urine RBC (0-1) /hpf Urine WBC (0-4) /hpf Ur Squamous Epith Cells (0-4) /hpf Urine Bacteria (0) /hpf Hyaline Casts (0-2) /lpf Urine Mucus (0) /hpf Ur Culture Indicated? Urine Opiates Screen (NONDETECTED) Ur Oxycodone Screen (NONDETECTED) Urine Methadone Screen (NONDETECTED) Ur Barbiturates Screen (NONDETECTED) Ur Phencyclidine Scrn (NONDETECTED) Ur Amphetamines Screen (NONDETECTED) U Benzodiazepines Scrn (NONDETECTED) Urine Cocaine Screen (NONDETECTED) U Marijuana (THC) Screen (NONDETECTED) 02/08/18 02/09/18 02/09/18 Range/Units 22:55 00:45 03:10 WBC (4.5-11.0) K/mcL RBC (4.50-5.90) M/mcL Hgb (13.5-16.5) g/dL Hct (41.0-55.0) % POC Hct 35.0 L (41.0-55.0) % MCV (80.0-100.0) fL MCH (26.0-34.0) pg MCHC (31.0-36.0) g/dL RDW (11.5-14.5) % Plt Count (140-440) K/mcL MPV (7.4-10.4) fL Gran % (38.0-78.0) % Lymph % (Auto) (15.5-49.0) % [place] % (Auto) (1.0-12.0) % Eos % (Auto) (0.0-7.0) % Baso % (Auto) (0.0-2.0) % Gran # (1.8-8.0) K/mcL Lymph # (Auto) (1.5-4.8) K/mcL [place] # (Auto) (0.1-0.9) K/mcL Eos # (Auto) (0.0-0.7) K/mcL Baso # (Auto) (0.0-0.3) K/mcL VBG Lactic Acid (0.5-2.2) mmol/L POC Sodium 134 (133-145) mmol/L Sodium (133-145) mmol/L POC Potassium 3.3 (3.3-5.1) mmol/L Potassium (3.3-5.1) mmol/L POC Chloride 94 L (96-108) mmol/L Chloride (96-108) mmol/L Carbon Dioxide (22-30) mmol/L POC Total CO2 24 (22-30) mmol/L Anion Gap (8-16) POC BUN 16 (6-20) mg/dl BUN (6-20) mg/dl Creatinine (0.7-1.2) mg/dl POC Creatinine 0.8 (0.7-1.2) mg/dl GFR Calculation Glucose (70-105) mg/dL POC Glucose 328 H (70-105) mg/dL Calcium (8.6-10.4) mg/dl POC WB Ioniz Calcium 1.09 L (1.16-1.32) mmol/L Total Bilirubin (0.0-1.0) mg/dL AST (0-37) U/l ALT (0-40) U/l Alkaline Phosphatase (39-117) U/L Total Protein (5.9-8.4) gm/dL Albumin (3.2-5.2) gm/dL Globulin (2.2-3.7) gm/dL Albumin/Globulin Ratio (1.0-2.3) Amylase (28-100) U/L Lipase (7-60) U/L Beta-Hydroxybutyrate 1.80 H (< 0.27) mmol/L Urine Color Yellow Urine Appearance Clear Urine pH 7.0 (5.0-9.0) Ur Specific [place] 1.017 (1.000-1.035) Urine Protein 100 A (NEG) mg/dL Urine Glucose (UA) >=500 A (NEG) mg/dL Urine Ketones 20 A (NEG) mg/dL Urine Occult Blood Neg (<0.03) mg/dL Urine Nitrate Neg (NEG) Urine Bilirubin Neg (NEG) mg/dL Urine Urobilinogen Neg (NEG) mg/dL Ur Leukocyte Esterase Neg (NEG) /uL Urine RBC 1 (0-1) /hpf Urine WBC 1 (0-4) /hpf Ur Squamous Epith Cells 0 (0-4) /hpf Urine Bacteria 0 (0) /hpf Hyaline Casts 6 H (0-2) /lpf Urine Mucus Few (0) /hpf Ur Culture Indicated? No Urine Opiates Screen (NONDETECTED) Ur Oxycodone Screen (NONDETECTED) Urine Methadone Screen (NONDETECTED) Ur Barbiturates Screen (NONDETECTED) Ur Phencyclidine Scrn (NONDETECTED) Ur Amphetamines Screen (NONDETECTED) U Benzodiazepines Scrn (NONDETECTED) Urine Cocaine Screen (NONDETECTED) U Marijuana (THC) Screen (NONDETECTED) 02/09/18 Range/Units 03:10 WBC (4.5-11.0) K/mcL RBC (4.50-5.90) M/mcL Hgb (13.5-16.5) g/dL Hct (41.0-55.0) % POC Hct (41.0-55.0) % MCV (80.0-100.0) fL MCH (26.0-34.0) pg MCHC (31.0-36.0) g/dL RDW (11.5-14.5) % Plt Count (140-440) K/mcL MPV (7.4-10.4) fL Gran % (38.0-78.0) % Lymph % (Auto) (15.5-49.0) % [place] % (Auto) (1.0-12.0) % Eos % (Auto) (0.0-7.0) % Baso % (Auto) (0.0-2.0) % Gran # (1.8-8.0) K/mcL Lymph # (Auto) (1.5-4.8) K/mcL [place] # (Auto) (0.1-0.9) K/mcL Eos # (Auto) (0.0-0.7) K/mcL Baso # (Auto) (0.0-0.3) K/mcL VBG Lactic Acid (0.5-2.2) mmol/L POC Sodium (133-145) mmol/L Sodium (133-145) mmol/L POC Potassium (3.3-5.1) mmol/L Potassium (3.3-5.1) mmol/L POC Chloride (96-108) mmol/L Chloride (96-108) mmol/L Carbon Dioxide (22-30) mmol/L POC Total CO2 (22-30) mmol/L Anion Gap (8-16) POC BUN (6-20) mg/dl BUN (6-20) mg/dl Creatinine (0.7-1.2) mg/dl POC Creatinine (0.7-1.2) mg/dl GFR Calculation Glucose (70-105) mg/dL POC Glucose (70-105) mg/dL Calcium (8.6-10.4) mg/dl POC WB Ioniz Calcium (1.16-1.32) mmol/L Total Bilirubin (0.0-1.0) mg/dL AST (0-37) U/l ALT (0-40) U/l Alkaline Phosphatase (39-117) U/L Total Protein (5.9-8.4) gm/dL Albumin (3.2-5.2) gm/dL Globulin (2.2-3.7) gm/dL Albumin/Globulin Ratio (1.0-2.3) Amylase (28-100) U/L Lipase (7-60) U/L Beta-Hydroxybutyrate (< 0.27) mmol/L Urine Color Urine Appearance Urine pH (5.0-9.0) Ur Specific [place] (1.000-1.035) Urine Protein (NEG) mg/dL Urine Glucose (UA) (NEG) mg/dL Urine Ketones (NEG) mg/dL Urine Occult Blood (<0.03) mg/dL Urine Nitrate (NEG) Urine Bilirubin (NEG) mg/dL Urine Urobilinogen (NEG) mg/dL Ur Leukocyte Esterase (NEG) /uL Urine RBC (0-1) /hpf Urine WBC (0-4) /hpf Ur Squamous Epith Cells (0-4) /hpf Urine Bacteria (0) /hpf Hyaline Casts (0-2) /lpf Urine Mucus (0) /hpf Ur Culture Indicated? Urine Opiates Screen None detected (NONDETECTED) Ur Oxycodone Screen None detected (NONDETECTED) Urine Methadone Screen None detected (NONDETECTED) Ur Barbiturates Screen None detected (NONDETECTED) Ur Phencyclidine Scrn None detected (NONDETECTED) Ur Amphetamines Screen None detected (NONDETECTED) U Benzodiazepines Scrn None detected (NONDETECTED) Urine Cocaine Screen None detected (NONDETECTED) U Marijuana (THC) Screen Suspect positive A (NONDETECTED) Arterial blood gas shows pH 7.56 PCO2 30 PO2 98 and a lactic acid of 1.2-this was done 2 hours after initial labs - Radiology Data Radiology results reviewed: Yes I reviewed the patient's radiology results. X-ray of the abdomen shows nonspecific bowel gas pattern As the x-ray was unrevealing CT scan of the abdomen and pelvis was done to rule out surgical causes of significant belly pain in this diabetic gastroparesis. CT is indeed also unrevealing with no acute cause for his belly pain seen Disposition Pt seen by DIRECTOR REGULATORY AFFAIRS/PA only: No Clinical Impression: Gastroparesis DKA (diabetic ketoacidosis) Qualifiers: Diabetes mellitus type: type 2 Diabetes mellitus complication detail: without coma Qualified Code(s): E11.10 - Type 2 diabetes mellitus with ketoacidosis without coma Summary: After initial exam and interview patient is worked up with laboratory and x- ray. Pain was initially treated with Demerol per request but then changed over to morphine due to Dilaudid shortage. Reglan given for gastroparesis and nausea. IV fluids started Found to have elevated blood glucose and anion gap-patient is in DKA. Fluids started and bolus of insulin given. Then patient started on insulin drip. Repeat Chem-8 and Accu-Cheks shows patient is trending in the right direction. X-ray of the abdomen is unrevealing. CT scan of abdomen pelvis was similarly unrevealing Discussed this case with Dr. Ding, the hospitalist. He agreed to accept patient for further inpatient care Disposition: Xfer As Inpt ([facility]) Condition: Serious
[2018-02-09] MEDS ORDERED: hydrALAZINE 20 MG/ML VIAL IV ONE (01:25)
[2018-02-09] MEDS ORDERED: HYDROmorphone 2 MG/ML VIAL IV PRN (01:25)
[2018-02-09] MEDS ORDERED: 0.9 % SODIUM CHLORIDE 1,000 ML IV ONE (02:01)
[2018-02-09 03:48] LABS: Appearance,Urine CLEAR; Bacteria,Urine 0 /hpf (0); Bilirubin,Urine NEG (NEG); Color,Urine YELLOW; Glucose,Urine (UA) >=500 mg/dL (NEG); Leukocyte Esterase,Urine NEG /uL (NEG); Mucus,Urine FEW /hpf (0); Protein,Urine 100 mg/dL (NEG); Specific Gravity,Urine 1.017 (1.000-1.035); Urine Blood NEG mg/dL (<0.03); Urine Hyaline Cast 6 /lpf (0-2); Urine RBC 1 /hpf (0-1); Urine Squamous Epithelial Cell 0 /hpf (0-4); Urine WBC 1 /hpf (0-4); Urobilinogen,Urine NEG (NEG)
[2018-02-09] MEDS ORDERED: 0.9 % SODIUM CHLORIDE 1,000 ML IV SCH ×3 (04:15→17:29)
[2018-02-09] MEDS ORDERED: ONDANSETRON 4 MG/2 ML VIAL IV ONE (04:30)
[2018-02-09] MEDS ORDERED: cloNIDine HCL 0.1 MG TABLET PO PRN ×2 (06:17→17:29)
[2018-02-09 06:41] LABS: Amphetamine Screen,Urine NONE DETECTED (NONDETECTED); Benzodiazepines Screen,Urine NONE DETECTED (NONDETECTED); Cocaine Screen,Urine NONE DETECTED (NONDETECTED); Opiate Screen,Urine NONE DETECTED (NONDETECTED); Oxycodone, Urine Screen NONE DETECTED (NONDETECTED)
[2018-02-09] MEDS: METOCLOPRAMIDE 10 MG/2 ML VIAL IV SCH ×3 (06:50→18:45)
[2018-02-09] MEDS ORDERED: METOCLOPRAMIDE 10 MG/2 ML VIAL ONE ×2 (06:52→18:24)
[2018-02-09] MEDS: 0.9 % SODIUM CHLORIDE 10 ML SYRINGE IV SCH ×3 (07:04→21:12)
[2018-02-09 07:15] LABS: Basophils # (Auto) 0 K/mcL (0.0-0.3); Basophils % (Auto) 0 % (0.0-2.0); Eosinophils # (Auto) 0 K/mcL (0.0-0.7); Eosinophils % (Auto) 0 % (0.0-7.0); Granulocytes % (Auto) 87.9 % (38.0-78.0); Lymphocytes # (Auto) 0.8 K/mcL (1.5-4.8); Lymphocytes % (Auto) 6.3 % (15.5-49.0); Mean Cell Volume 90.6 fL (80.0-100.0); Mean Corpuscular Hemoglobin 30.8 pg (26.0-34.0); Monocytes # (Auto) 0.8 K/mcL (0.1-0.9); Monocytes % (Auto) 5.8 % (1.0-12.0); Platelet Count 455 K/mcL (140-440); RBC 4.08 M/mcL (4.50-5.90); Red Cell Distribution Width 13.9 % (11.5-14.5)
[2018-02-09] MEDS ORDERED: ONDANSETRON 4 MG/2 ML VIAL IV PRN (07:39)
[2018-02-09] MEDS ORDERED: LABETALOL 5 MG/ML ML IV ONE ×2 (07:39→07:43)
[2018-02-09] MEDS ORDERED: LABETALOL 5 MG/ML ML IV PRN ×2 (07:43→17:29)
[2018-02-09 07:48] LABS: ALT/SGPT 13 U/l (0-40); Albumin/Globulin Ratio 1.2 (1.0-2.3); Alkaline Phosphatase 88 U/L (39-117); Beta Hydroxybutyrate 0.08 mmol/L (< 0.27); Bilirubin,Direct < 0.2 mg/dL (0.0-0.3); Blood Urea Nitrogen 14 mg/dl (6-20); Gamma Glutamyl Transpeptidase 20 U/L (8-61); Uric Acid 5.6 mg/dL (2.5-8.0)
[2018-02-09] MEDS ORDERED: SODIUM CHLORIDE 0.9% IV SCH (08:00)
[2018-02-09] MEDS ORDERED: ERYTHROMYCIN LACTOBIONATE IV SCH (08:00)
[2018-02-09] MEDS ORDERED: MAGNESIUM SULFATE 2 GM/50 ML BAG IV ONE (08:01)
[2018-02-09] MEDS: 0.9 % SODIUM CHLORIDE 1,000 ML IV SCH ×4 (08:19→17:11)
--- NOTE | 2018-02-09 08:47 | XRay Report ---
HISTORY: Reason for Exam:epigastric pain. vomiting FINDINGS: The bowel gas pattern is normal. The stomach is decompressed. No free intra-abdominal air is present. There is no apparent soft tissue mass or abnormal calcification. Degenerative disc disease and arthritis are present at L3-4 and L4-5. IMPRESSION: Normal exam Interpreted and Authenticated by: You Castaneda 02/09/18
--- NOTE | 2018-02-09 08:57 | Cat Scan Report ---
CLINICAL INFORMATION: Reason for Exam:abdominal pain, lactic acidosis COMPARISON: None. TECHNIQUE: Following oral contrast in the injection of intravenous contrast the patient was scanned during the portal venous phase from the diaphragm through the symphysis pubis. Sagittal and coronal reformats were created.. Radiation exposure was limited using dose reduction technology. FINDINGS: The liver has mild generalized fatty infiltration. The overall size is within normal limits and there is no evidence of a mass. The bile ducts are nondilated. The gallbladder appears normal and there are no stones or thickening of the wall. The spleen is normal in size and homogeneous. There is no mass or inflammation in the pancreas. The adrenals are normal. There is stranding of the perirenal fat along the inferior portion of the left kidney. There is also an exophytic simple cyst along the lateral border of the lower pole which measures 1.2 cm. No kidney stone, mass or hydronephrosis are present in either kidney. The ureters are decompressed. The oral contrast passed through normal small intestine into the proximal colon without obstruction. The appendix is noninflamed. The wall of the intestine is normal in thickness and there is no evidence of edema or inflammation. No diverticula are present. Urinary bladder is normally distended and there are no intraluminal filling defects. The prostate is normal in size and contains multiple coarse calcifications in the transitional zone. Seminal vesicles are normal. There are few calcified plaques along the wall of the mid and distal abdominal aorta. There is no aneurysm, dissection, stenosis or thrombosis of the abdominal arteries. No ascites or abscess are present. A laminotomy defect is present in the right side at L4. Severe degenerative disc disease and arthritis are present at T11-12, L3-4, L4-5 and L5-S1. IMPRESSION: Nonspecific stranding along the lower pole of the left kidney. This may be chronic fibrosis or an acute inflammatory reaction. There is no edema of the renal parenchyma to suggest pyelonephritis. Interpreted and Authenticated by: You Castaneda 02/09/18
[2018-02-09] MEDS ORDERED: HEPARIN 5,000 UNIT/ML VIAL SQ SCH (09:00)
[2018-02-09] MEDS ORDERED: PANTOPRAZOLE 40 MG VIAL IV SCH (09:00)
[2018-02-09] MEDS ORDERED: POTASSIUM CHLORIDE 40 MEQ in DEXTROSE 5% IN WATER 500 ML IV ONE (09:00)
[2018-02-09] MEDS ORDERED: LISINOPRIL 20 MG TABLET PO SCH (09:00)
--- NOTE | 2018-02-09 09:01 | XRay Report ---
HISTORY: Reason for Exam:leucocytosis FINDINGS: Lungs are clear and well expanded. The heart size, mediastinum, justus are normal. There are two small metal anchors in the right glenoid. IMPRESSION: Normal chest Interpreted and Authenticated by: You Castaneda 02/09/18
[2018-02-09] MEDS ORDERED: INSULIN GLARGINE, HUMAN 1 UNIT/0.01 ML SQ SCH (09:45)
--- NOTE | 2018-02-09 11:07 | Internal Med History&Physical ---
Medical - H&P: HPI Patient information: Note initiated : 02/09/18 at 11:04 am Service Date, if different from initiated Date: [] Patient: Abdi Reese 57 y/o M admitted on 02/09/18 for n/v abd pain. Chief Complaint: [] History of present illness: Mr. Reese is a 57 year old pleasant male presents to the emergency room overnight with complaints of abdominal pain nausea and vomiting going on for the last 1 day. He missed his dose of insulin yesterday. The patient notes that his symptoms started on Saturday, lower abdominal pain, cramping like, no aggravating or relieving factors, associated with significant nausea vomiting. Unable to tolerate any p.o. diet. The patient therefore came to the hospital for further evaluation. The patient was admitted to the hospital approximately 3 or 4 weeks ago, with similar complaints, was diagnosed with diabetic gastroparesis, and started on Reglan. The patient has not had an endoscopy done. According to the CT scan done in the previous hospitalization there was some thickening of the lower esophageal region. The patient underwent an CT scan this visit and there was no comment made on the esophagus. No acute intra- abdominal pathology noted. The patient denies any gastric empty study performed. In the emergency room, patient was afebrile 97.8, heart rate 103, blood pressure 189/91, saturating 95% on room air. He had elevated WBC count at 13.6, hemoglobin 14.3, platelet 518. Patient's sodium was 128, potassium 3.8 chloride 83 bicarb 20 BUN 16 creatinine 1.1 glucose level very elevated at 480. He had an anion gap of 25. Lactic acid elevated at 3.1, TSH 2.27. Pro-calcitonin low at 0.1. Patient got some IV fluids and an ABG was done which showed pH of 7.56, PCO2 of 30, PO2 98 and lactic acid 1.2. Chest x-ray done this morning does not show any acute infiltrates. Given elevated hydroxybutyrate, high anion gap and elevated glucose patient was put on an insulin drip and admitted to the hospital with a diagnosis of DKA. All systems: reviewed and no additional remarkable complaints except as stated ( as per HPI, 10 system ros done) Medical - H&P: PMH Medical history: DM Neuropathy ckd htn hld Family history: reviewed and not pertinent Social history: denies etoh, denies thc use, noted daughter smokes therefore urine test is positive Medical - H&P: Meds Home Medications Medication Instructions Recorded Confirmed Type insulin aspart U-100 100 unit/mL 10 unit SUB-Q TID ml 11/22/17 02/09/18 History subcutaneous solution ropinirole 1 mg tablet 1 mg PO HSP PRN 11/22/17 02/09/18 History Accu-Chek 1 each FS ACHS strip 01/12/18 02/09/18 Rx Metoclopramide [Reglan] 10 mg PO Q6 #120 tab 01/12/18 02/09/18 Rx Gabapentin [Neurontin] 400 mg PO BID 01/22/18 02/09/18 History Zofran ODT 02/08/18 History Venlafaxine [Effexor] 37.5 mg PO BID 02/09/18 02/09/18 History Allergies Allergy/AdvReac Type Severity Reaction Status Date / Time acetaminophen [From Vicodin] AdvReac Intermediate Rash Verified 02/08/18 22:40 hydrocodone [From Vicodin] AdvReac Intermediate Rash Verified 02/08/18 22:40 Medical - H&P: Exam - Constitutional Vitals: Temp Pulse Resp BP Pulse Ox 100.1 F H 90 26 H 143/108 94 02/09/18 06:16 02/09/18 10:47 02/09/18 10:02 02/09/18 10:02 02/09/18 10:47 Exam: GENERAL: The patient is a well-developed, well-nourished in no apparent distress. Is alert and oriented x3. VITAL SIGNS: Reviewed and as noted elsewhere. HEENT: Head is normocephalic and atraumatic. Extraocular muscles are intact. Pupils are equal, round, and reactive to light. Nares appeared normal. Mouth appears any without lesions. Mucous membranes are moist. NECK: Normal to inspection, Supple, No lymphadenopathy or thyromegaly. LUNGS: Air entry equal on both sides, no wheezing, crackles or rhonchi noted. No accessory muscles of respiration HEART: Regular rate and rhythm normal, S1 and S2 heard, no Gallop, S3 or Rub Noted, No Gross murmur heard. ABDOMEN: Soft, estrella lower abdomen tenderness in both rlq and llq abdomen is nondistended. Positive bowel sounds. No hepatosplenomegaly was noted. No guarding or rigidity EXTREMITIES: No cyanosis, clubbing, rash, lesions or edema. NEUROLOGIC: Cranial nerves II through XII are grossly intact. Motor and Sensory System Grossly Intact PSYCHIATRIC: Normal affect, Normal Mood. Appropriate Behavior. SKIN: No ulceration or wounds noted, No jaundice, No rash noted. Medical - H&P: Reslt - Labs CBC & Chem 7: 02/09/18 06:32 02/09/18 06:32 Labs: Short CBC 02/08/18 02/09/18 Range/Units 22:55 06:32 WBC 13.6 H 13.5 H (4.5-11.0) K/mcL Hgb 14.3 12.6 L (13.5-16.5) g/dL Hct 41.9 37.0 L (41.0-55.0) % Plt Count 518 H 455 H (140-440) K/mcL BMP 02/08/18 02/09/18 22:55 06:32 Sodium 128 L 132 L Potassium 3.8 3.0 L Chloride 83 L 89 L Carbon Dioxide 20 L 27 BUN 16 14 Creatinine 1.1 0.9 Glucose 480 H* 178 H Calcium 10.3 9.1 Liver Function 02/08/18 02/09/18 Range/Units 22:55 06:32 Total Bilirubin 0.6 0.3 (0.0-1.0) mg/dL Direct Bilirubin < 0.2 (0.0-0.3) mg/dL GGT 20 (8-61) U/L AST 17 15 (0-37) U/l ALT 16 13 (0-40) U/l Alkaline Phosphatase 110 88 (39-117) U/L Albumin 4.4 4.0 (3.2-5.2) gm/dL Urine 02/09/18 Range/Units 03:10 Urine Color Yellow Urine Appearance Clear Urine pH 7.0 (5.0-9.0) Ur Specific [place] 1.017 (1.000-1.035) Urine Protein 100 A (NEG) mg/dL Urine Glucose (UA) >=500 A (NEG) mg/dL Medical - H&P: A/P - Narrative A/P Narrative: A//P DKA- Mild, resolved this AM, start on sq insulin, and continue IVF, start on lantus, ssi regime and monitor glucose, beta hydroxybutyrate is neg this AM, pt wants to try oral meals Diabetic gastroparesis- Has significant neuropathy so this is likely diagnosis of his nausea and vomiting, he has not had an EGD yet, Will see if we can get this done this visit. Dr Dawkins will evaluate. Reglan for nausea, no IV erythromycin available, if able to tolerate po we can try oral erythromycin. Utox is positive for thc, pt admits to use 2 weeks ago, blames smoking by daugther for his positive utox. HTN- uncontrolled bp, was on lisinopril in the past, which was stopped likely for worsening renal function, it seems his kidneys are back to normal resume same, prn labetalol for now Metabolic alkalosis/ resp alkalosis/ HAGMA- resolving with treatment of underlying etiology Neuropaty- on gabapentin, continue same, bladder incontinuese due to same? hypomagnesmia/hypokalemia- replace DVT - hep sq diet clear liquid Full code Obs status, anticipate d/c tomorrow if able to tolerate po diet well, and we are able to get the EGD done. Medical - H&P: Qual - VTE Deep Vein Thrombosis/Pulmonary Embolism Present on Admission: No
[2018-02-09] MEDS ORDERED: DEXTROSE 31 GM ORAL.SUSP PO PRN ×2 (11:10→17:29)
[2018-02-09] MEDS ORDERED: DEXTROSE 50% 50 ML VIAL IV PRN ×2 (11:10→17:29)
[2018-02-09] MEDS: INSULIN LISPRO 1 UNIT/0.01 ML UNIT SQ SCH ×2 (12:20→17:26)
--- NOTE | 2018-02-09 13:43 | General Surgery Consult Note ---
History of Present Illness Patient information: Note initiated : 02/09/18 at 1:39 pm Service Date, if different from initiated Date: [] Patient: Abdi Reese 57 y/o M admitted on 02/09/18 for n/v abd pain. Chief Complaint: [] Reason for consult: abdominal pain Requesting physician: Ronen Ding History of present illness: 57-year-old male with a long history of recurrent episodes of postprandial vomiting and dry heaves. He has had for dizziness to the outpatient clinic or emergency room over the past month. He has associated fever chills and dizziness. It started in early December when he was diagnosed with gastroparesis. He had multiple episodes of dry heaves without actual vomiting. He has been treated with Reglan in the past with good results but for some reason it was not continued. He has not had diarrhea. He presents with similar history with inability to keep food down over the past few days. He was severely hyperglycemic with DKA which probably contributed to his abdominal pain. The patient is improved at this time. He is not having true gastric emptying study performed. He is being seen for consideration for upper endoscopy. Review of Systems - Constitutional fatigue, malaise, weakness, weight loss - EENT Nose, mouth and throat: dizziness - Cardiovascular orthopnea, palpatations, rapid heart rate, no chest pain at rest, no dyspnea on exertion, no edema - Respiratory no dyspnea on exertion, no wheezing, no pain on inspirtation - Gastrointestinal abdominal pain, bloating, cramping, dyspepsia, early satiety, heartburn, nausea , vomiting - Genitourinary urinary hesitancy, urinary incontinence, urinary urgency - Musculoskeletal arthralgias, back pain, myalgias, numbness - Integumentary no changing lesions, no new lesions, no pruritus, no rash - Neurological abnormal gait, abnormal hearing, burning sensations, disequilibrium, frequent falls, lack of coordination, loss of vision, numbness, restless legs, tremor(s) , weakness, other visual disturbances - Psychiatric anhedonia, anxiety (assessment gastric emptying study Reglan works for him.), tactile, no suicidal ideation (lidocaine good) - Endocrine fatigue, palpitations (sheis a well-developed,), polydipsia, polyphagia, polyuria - Hematologic/Lymphatic no easy bleeding, no easy bruising, no lymphadenopathy - Allergic/Immunologic no tongue swelling, no throat swelling, no uticaria, no wheezing, no lip swelling Past History Past medical history: Diabetes mellitus 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 Hypertension Chronic Kidney Disease BPH Decreased Vision Past surgical history: L4-5 back surgery Right shoulder surgery Bilateral carpal tunnel release Surgery on sheet 2 Removal of cutaneous than lipomas 2 Past family history: Father age 72 due to kidney cancer Mother age 56 due to complications of automobile accident 6 siblings with lupus ,hypertension and diabetes Past social history: Denies tobacco use ALCOHOL USE OCCASIONAL MARIJUANA USE tox screen is positive Medications and Allergies Home Medications Medication Instructions Recorded Confirmed Type insulin aspart U-100 100 unit/mL 10 unit SUB-Q TID ml 11/22/17 02/09/18 History subcutaneous solution ropinirole 1 mg tablet 1 mg PO HSP PRN 11/22/17 02/09/18 History Accu-Chek 1 each FS ACHS strip 01/12/18 02/09/18 Rx Metoclopramide [Reglan] 10 mg PO Q6 #120 tab 01/12/18 02/09/18 Rx Gabapentin [Neurontin] 400 mg PO BID 01/22/18 02/09/18 History Zofran ODT 02/08/18 History Venlafaxine [Effexor] 37.5 mg PO BID 02/09/18 02/09/18 History Allergies Allergy/AdvReac Type Severity Reaction Status Date / Time acetaminophen [From Vicodin] AdvReac Intermediate Rash Verified 02/08/18 22:40 hydrocodone [From Vicodin] AdvReac Intermediate Rash Verified 02/08/18 22:40 Exam Temp Pulse Resp BP Pulse Ox 99.5 F H 95 H 18 186/80 94 02/09/18 11:44 02/09/18 13:05 02/09/18 11:44 02/09/18 13:05 02/09/18 13:05 - General physical appearance well developed, well nourished, no distress - Eyes PERRL, normal ocular movement - ENT normal pinna, normal nares, normal mucosa, no hearing loss, no congestion - Head Head exam IM: Present: atraumatic, normal inspection, normocephalic - Neck no masses, no bruits, trachea midline, no lymphadectomy, no venous distension - Cardiovascular Cardiovascular exam IM: Present: normal rate and rhythm, RRR, +S1, +S2. Absent : JVD, tachycardia - Respiratory normal expansion, normal respiratory effort, clear to percussion, clear to auscultation - Abdomen Abdomen: Present: soft, tender (mild mid abdominal tenderness to deep palpation) , bowel sounds Hernia: Present: none - Genitourinary Present: normal penis with no external lesions - Integumentary Present: no rash, no growths, no abnormal pigmentation - Neurologic Present: normal coordination, normal sensation, other ( severe peripheral neuropathy with loss of hot cold discrimination; loss of touch in his feet and extending to mid calf level; loss of position sensation in feet) - Musculoskeletal Present: normal gait, normal posture - Psychiatric Present: oriented to time, oriented to person, oriented to place, speech is normal, memory intact Results - Labs 02/09/18 06:32 02/09/18 06:32 Abnormal lab results 02/08/18 02/08/18 02/08/18 Range/Units 22:55 22:55 22:55 WBC 13.6 H (4.5-11.0) K/mcL RBC (4.50-5.90) M/mcL Hgb (13.5-16.5) g/dL Hct (41.0-55.0) % POC Hct (41.0-55.0) % Plt Count 518 H (140-440) K/mcL Gran % 90.4 H (38.0-78.0) % Lymph % (Auto) 7.1 L (15.5-49.0) % Gran # 12.3 H (1.8-8.0) K/mcL Lymph # (Auto) 1.0 L (1.5-4.8) K/mcL VBG Lactic Acid 3.1 H (0.5-2.2) mmol/L POC Sodium 129 L (133-145) mmol/L Sodium 128 L (133-145) mmol/L Potassium (3.3-5.1) mmol/L POC Chloride 92 L (96-108) mmol/L Chloride 83 L (96-108) mmol/L Carbon Dioxide 20 L (22-30) mmol/L Anion Gap 25.0 H (8-16) Glucose 480 H* (70-105) mg/dL POC Glucose 510 H* (70-105) mg/dL POC WB Ioniz Calcium 0.99 L (1.16-1.32) mmol/L Phosphorus (2.7-4.5) mg/dL Magnesium (1.6-2.5) mg/dL Globulin 4.0 H (2.2-3.7) gm/dL Beta-Hydroxybutyrate (< 0.27) mmol/L Urine Protein (NEG) mg/dL Urine Glucose (UA) (NEG) mg/dL Urine Ketones (NEG) mg/dL Hyaline Casts (0-2) /lpf U Marijuana (THC) Screen (NONDETECTED) 02/08/18 02/09/18 02/09/18 Range/Units 22:55 00:45 03:10 WBC (4.5-11.0) K/mcL RBC (4.50-5.90) M/mcL Hgb (13.5-16.5) g/dL Hct (41.0-55.0) % POC Hct 35.0 L (41.0-55.0) % Plt Count (140-440) K/mcL Gran % (38.0-78.0) % Lymph % (Auto) (15.5-49.0) % Gran # (1.8-8.0) K/mcL Lymph # (Auto) (1.5-4.8) K/mcL VBG Lactic Acid (0.5-2.2) mmol/L POC Sodium (133-145) mmol/L Sodium (133-145) mmol/L Potassium (3.3-5.1) mmol/L POC Chloride 94 L (96-108) mmol/L Chloride (96-108) mmol/L Carbon Dioxide (22-30) mmol/L Anion Gap (8-16) Glucose (70-105) mg/dL POC Glucose 328 H (70-105) mg/dL POC WB Ioniz Calcium 1.09 L (1.16-1.32) mmol/L Phosphorus (2.7-4.5) mg/dL Magnesium (1.6-2.5) mg/dL Globulin (2.2-3.7) gm/dL Beta-Hydroxybutyrate 1.80 H (< 0.27) mmol/L Urine Protein 100 A (NEG) mg/dL Urine Glucose (UA) >=500 A (NEG) mg/dL Urine Ketones 20 A (NEG) mg/dL Hyaline Casts 6 H (0-2) /lpf U Marijuana (THC) Screen (NONDETECTED) 02/09/18 02/09/18 02/09/18 Range/Units 03:10 06:32 06:32 WBC 13.5 H (4.5-11.0) K/mcL RBC 4.08 L (4.50-5.90) M/mcL Hgb 12.6 L (13.5-16.5) g/dL Hct 37.0 L (41.0-55.0) % POC Hct (41.0-55.0) % Plt Count 455 H (140-440) K/mcL Gran % 87.9 H (38.0-78.0) % Lymph % (Auto) 6.3 L (15.5-49.0) % Gran # 11.8 H (1.8-8.0) K/mcL Lymph # (Auto) 0.8 L (1.5-4.8) K/mcL VBG Lactic Acid (0.5-2.2) mmol/L POC Sodium (133-145) mmol/L Sodium 132 L (133-145) mmol/L Potassium 3.0 L (3.3-5.1) mmol/L POC Chloride (96-108) mmol/L Chloride 89 L (96-108) mmol/L Carbon Dioxide (22-30) mmol/L Anion Gap (8-16) Glucose 178 H (70-105) mg/dL POC Glucose (70-105) mg/dL POC WB Ioniz Calcium (1.16-1.32) mmol/L Phosphorus 2.6 L (2.7-4.5) mg/dL Magnesium 1.5 L (1.6-2.5) mg/dL Globulin (2.2-3.7) gm/dL Beta-Hydroxybutyrate (< 0.27) mmol/L Urine Protein (NEG) mg/dL Urine Glucose (UA) (NEG) mg/dL Urine Ketones (NEG) mg/dL Hyaline Casts (0-2) /lpf U Marijuana (THC) Screen Suspect positive A (NONDETECTED) Diabetes panel 02/08/18 02/09/18 Range/Units 22:55 06:32 Sodium 128 L 132 L (133-145) mmol/L Potassium 3.8 3.0 L (3.3-5.1) mmol/L Chloride 83 L 89 L (96-108) mmol/L Carbon Dioxide 20 L 27 (22-30) mmol/L BUN 16 14 (6-20) mg/dl Creatinine 1.1 0.9 (0.7-1.2) mg/dl Glucose 480 H* 178 H (70-105) mg/dL Calcium 10.3 9.1 (8.6-10.4) mg/dl AST 17 15 (0-37) U/l ALT 16 13 (0-40) U/l Alkaline Phosphatase 110 88 (39-117) U/L Total Protein 8.4 7.3 (5.9-8.4) gm/dL Albumin 4.4 4.0 (3.2-5.2) gm/dL Triglycerides 106 (<150) mg/dl Thyroid panel 02/09/18 Range/Units 06:32 TSH 2.27 (0.27-5.01) uIU/ml Calcium panel 02/08/18 02/09/18 Range/Units 22:55 06:32 Calcium 10.3 9.1 (8.6-10.4) mg/dl Phosphorus 2.6 L (2.7-4.5) mg/dL Albumin 4.4 4.0 (3.2-5.2) gm/dL Pituitary panel 02/08/18 02/09/18 Range/Units 22:55 06:32 Sodium 128 L 132 L (133-145) mmol/L Potassium 3.8 3.0 L (3.3-5.1) mmol/L Chloride 83 L 89 L (96-108) mmol/L Carbon Dioxide 20 L 27 (22-30) mmol/L BUN 16 14 (6-20) mg/dl Creatinine 1.1 0.9 (0.7-1.2) mg/dl Glucose 480 H* 178 H (70-105) mg/dL Calcium 10.3 9.1 (8.6-10.4) mg/dl TSH 2.27 (0.27-5.01) uIU/ml Adrenal panel 02/08/18 02/09/18 Range/Units 22:55 06:32 Sodium 128 L 132 L (133-145) mmol/L Potassium 3.8 3.0 L (3.3-5.1) mmol/L Chloride 83 L 89 L (96-108) mmol/L Carbon Dioxide 20 L 27 (22-30) mmol/L BUN 16 14 (6-20) mg/dl Creatinine 1.1 0.9 (0.7-1.2) mg/dl Glucose 480 H* 178 H (70-105) mg/dL Calcium 10.3 9.1 (8.6-10.4) mg/dl Total Bilirubin 0.6 0.3 (0.0-1.0) mg/dL AST 17 15 (0-37) U/l ALT 16 13 (0-40) U/l Alkaline Phosphatase 110 88 (39-117) U/L Total Protein 8.4 7.3 (5.9-8.4) gm/dL Albumin 4.4 4.0 (3.2-5.2) gm/dL All other labs normal. Assessment and Plan (1) DKA (diabetic ketoacidosis) Status: Acute Qualifiers: Diabetes mellitus type: type 2 Diabetes mellitus complication detail: without coma Qualified Code(s): E11.10 - Type 2 diabetes mellitus with ketoacidosis without coma (2) Gastroparesis We'll schedule her for upper endoscopy in the morning Patient should have gastric emptying nuclear medicine study as an outpatient Status: Acute (3) CRF (chronic renal failure) Status: Acute Qualifiers: Chronic kidney disease stage: stage 2 (mild) Qualified Code(s): N18.2 - Chronic kidney disease, stage 2 (mild)
[2018-02-09] MEDS: HEPARIN 5,000 UNIT/ML VIAL SQ SCH (20:22)
[2018-02-09] MEDS: GABAPENTIN 400 MG CAPSULE PO SCH (20:22)
[2018-02-09] MEDS: VENLAFAXINE 37.5 MG TABLET PO SCH (20:22)
[2018-02-09] MEDS: PANTOPRAZOLE 40 MG VIAL IV SCH (20:23)
[2018-02-09] MEDS ORDERED: GABAPENTIN 400 MG CAPSULE PO SCH (21:00)
[2018-02-09] MEDS ORDERED: rOPINIRole 1 MG TABLET PO PRN ×2 (21:00)
[2018-02-09] MEDS ORDERED: INSULIN LISPRO 1 UNIT/0.01 ML UNIT SQ SCH (21:00)
[2018-02-09] MEDS ORDERED: VENLAFAXINE 37.5 MG TABLET PO SCH (21:00)
[2018-02-09] MEDS ORDERED: VENLAFAXINE 37.5 MG TAB.ER.24H PO SCH (21:00)
[2018-02-09] MEDS: ONDANSETRON 4 MG/2 ML VIAL IV PRN (21:07)
[2018-02-09] MEDS: ERYTHROMYCIN BASE 250 MG CAPSULE PO SCH (21:46)
[2018-02-10] MEDS: METOCLOPRAMIDE 10 MG/2 ML VIAL IV SCH ×2 (00:02→05:29)
[2018-02-10] MEDS: ONDANSETRON 4 MG/2 ML VIAL IV PRN (02:03)
[2018-02-10] MEDS: ERYTHROMYCIN BASE 250 MG CAPSULE PO SCH ×3 (03:44→17:09)
[2018-02-10 04:51] LABS: Basophils # (Auto) 0 K/mcL (0.0-0.3); Basophils % (Auto) 0.3 % (0.0-2.0); Eosinophils # (Auto) 0 K/mcL (0.0-0.7); Eosinophils % (Auto) 0.2 % (0.0-7.0); Granulocytes % (Auto) 79.5 % (38.0-78.0); Lymphocytes # (Auto) 1.7 K/mcL (1.5-4.8); Lymphocytes % (Auto) 14.4 % (15.5-49.0); Mean Cell Volume 91.3 fL (80.0-100.0); Mean Corpuscular HGB Conc 34.4 g/dL (31.0-36.0); Mean Corpuscular Hemoglobin 31.4 pg (26.0-34.0); Monocytes # (Auto) 0.7 K/mcL (0.1-0.9); Monocytes % (Auto) 5.6 % (1.0-12.0); Platelet Count 401 K/mcL (140-440)
[2018-02-10 05:20] LABS: ALT/SGPT 14 U/l (0-40); Albumin 3.6 gm/dL (3.2-5.2); Albumin/Globulin Ratio 1.2 (1.0-2.3); Alkaline Phosphatase 77 U/L (39-117); Bilirubin,Direct < 0.2 mg/dL (0.0-0.3); Blood Urea Nitrogen 11 mg/dl (6-20); Gamma Glutamyl Transpeptidase 19 U/L (8-61); Uric Acid 5.3 mg/dL (2.5-8.0)
[2018-02-10] MEDS: 0.9 % SODIUM CHLORIDE 10 ML SYRINGE IV SCH ×3 (05:29→17:42)
[2018-02-10] MEDS ORDERED: MAGNESIUM SULFATE 2 GM/50 ML BAG IV ONE (07:00)
[2018-02-10] MEDS ORDERED: INSULIN LISPRO 1 UNIT/0.01 ML UNIT SQ SCH ×2 (07:30→11:30)
[2018-02-10] MEDS ORDERED: POTASSIUM CHLORIDE 40 MEQ in DEXTROSE 5% IN WATER 500 ML IV ONE (08:00)
[2018-02-10] MEDS: VENLAFAXINE 37.5 MG TABLET PO SCH (08:58)
[2018-02-10] MEDS: HEPARIN 5,000 UNIT/ML VIAL SQ SCH (08:58)
[2018-02-10] MEDS: GABAPENTIN 400 MG CAPSULE PO SCH (08:59)
[2018-02-10] MEDS ORDERED: INSULIN GLARGINE, HUMAN 1 UNIT/0.01 ML SQ SCH (09:00)
[2018-02-10] MEDS ORDERED: LISINOPRIL 20 MG TABLET PO SCH (09:00)
[2018-02-10] MEDS ORDERED: PNEUMOCOCCAL 23-VAL P-SAC VAC 0.5 ML VIAL IM ONE (09:00)
[2018-02-10] MEDS ORDERED: amLODIPine 5 MG TABLET PO SCH ×3 (09:00→10:30)
[2018-02-10] MEDS: PANTOPRAZOLE 40 MG VIAL IV SCH (09:39)
--- NOTE | 2018-02-10 10:22 | Internal Med Progress Note ---
Medical - PN: Subj Patient information: Note initiated : 02/10/18 at 10:17 am Service Date, if different from initiated Date: [] Patient: Abdi Reese 57 y/o M admitted on 02/09/18 for n/v abd pain. Chief Complaint: [] Interval history: Mr. Reese is a 57 year old pleasant male presents to the emergency room overnight with complaints of abdominal pain nausea and vomiting going on for the last 1 day. He missed his dose of insulin yesterday. The patient notes that his symptoms started on Saturday, lower abdominal pain, cramping like, no aggravating or relieving factors, associated with significant nausea vomiting. Unable to tolerate any p.o. diet. The patient therefore came to the hospital for further evaluation. The patient was admitted to the hospital approximately 3 or 4 weeks ago, with similar complaints, was diagnosed with diabetic gastroparesis, and started on Reglan. The patient has not had an endoscopy done. According to the CT scan done in the previous hospitalization there was some thickening of the lower esophageal region. The patient underwent an CT scan this visit and there was no comment made on the esophagus. No acute intra- abdominal pathology noted. The patient denies any gastric empty study performed. In the emergency room, patient was afebrile 97.8, heart rate 103, blood pressure 189/91, saturating 95% on room air. He had elevated WBC count at 13.6, hemoglobin 14.3, platelet 518. Patient's sodium was 128, potassium 3.8 chloride 83 bicarb 20 BUN 16 creatinine 1.1 glucose level very elevated at 480. He had an anion gap of 25. Lactic acid elevated at 3.1, TSH 2.27. Pro-calcitonin low at 0.1. Patient got some IV fluids and an ABG was done which showed pH of 7.56, PCO2 of 30, PO2 98 and lactic acid 1.2. Chest x-ray done this morning does not show any acute infiltrates. Given elevated hydroxybutyrate, high anion gap and elevated glucose patient was put on an insulin drip and admitted to the hospital with a diagnosis of DKA. 02/10 Pt seen exained, no acute overnight issues, some nausea overnight despite being on zofran and reglan scheduled add erythromycin FOB positive, nani peng, had peptobismal before, EGD planned for noon by surgery Has bowel and bladder incontinence too, which started around the same time, attributes this to his severe neuropathy.Bowel bladder incontince is associated with dry heaving, no headache no back pain. Pertinent ROS: Denies headache, dizziness Denies chest pain, palpitations Denies cough or shortness of breath Denies abdominal pain, no vomiting, nausea present. - Constitutional Vitals: Vital Signs Temp Pulse Resp BP Pulse Ox 98.5 F 90 18 191/93 93 02/10/18 08:00 02/10/18 08:00 02/10/18 08:00 02/10/18 08:00 02/10/18 08:00 Period Temp Pulse Resp BP Sys/Goff Pulse Ox Last 24 Hr 98.2 F-99.5 F 89-96 14-18 99-191/65-141 90-95 Intake and Output 02/09/18 02/10/18 02/10/18 21:59 05:59 13:59 Intake Total 1494 / 1494 Output Total 550 / 550 600 / 600 950 / 950 Balance 944 / 944 -600 / -600 -950 / -950 Weight 245 lb 6.4 oz Intake & Output: Intake & Output 02/09/18 02/10/18 02/10/18 21:59 05:59 13:59 Intake Total 1494 / 1494 Output Total 550 / 550 600 / 600 950 / 950 Balance 944 / 944 -600 / -600 -950 / -950 Weight 245 lb 6.4 oz Intake: IV 554 / 554 Sodium Chloride 0.9% 1,000 ml @ 503 / 503 200 mls/hr IV .Q5H [facility] Rx#: [id number] Oral 940 / 940 Output: Void Amount 550 / 550 600 / 600 950 / 950 Other: Meal Dinner Percent of Meal Consumed 100% Feeding Ability Independent # Bowel Movements 2 Exam: Constitutional; Afebrile, cooperative, alert, not in distress. Eyes- No icterus, , No periorbital swelling Ears- Ext ear normal, hearing normal to conversation. Neck- Midline trachea, supple Respiratory system: Air Entry equal on both sides, No crackles or wheezing, no rhonchi. CVS- Rate rhythm regular, S1,S2 heard, no gallop, no rub. Abdomen- Soft nontender abdomen, no organomegaly, no tenderness, no guarding or rigidity, TORCH CUTTER- AOOx3, moving all extremities, no gross focal deficit noted. Medical - PN: Obj Da - Labs CBC & Chem 7: 02/10/18 04:00 02/10/18 04:00 Labs: Abnormal Lab Results 02/10/18 02/10/18 02/09/18 04:00 04:00 06:32 WBC 11.9 H RBC 3.70 L Hgb 11.6 L Hct 33.8 L POC Hct Plt Count Gran % 79.5 H Lymph % (Auto) 14.4 L Gran # 9.4 H Lymph # (Auto) VBG Lactic Acid POC Sodium Sodium 132 L Potassium 3.1 L 3.0 L POC Chloride Chloride 89 L Carbon Dioxide Anion Gap Glucose 160 H 178 H POC Glucose Calcium 8.4 L POC WB Ioniz Calcium Phosphorus 2.6 L Magnesium 1.5 L Globulin Triglycerides 190 H Beta-Hydroxybutyrate Urine Protein Urine Glucose (UA) Urine Ketones Hyaline Casts U Marijuana (THC) Screen 02/09/18 02/09/18 02/09/18 06:32 03:10 03:10 WBC 13.5 H RBC 4.08 L Hgb 12.6 L Hct 37.0 L POC Hct Plt Count 455 H Gran % 87.9 H Lymph % (Auto) 6.3 L Gran # 11.8 H Lymph # (Auto) 0.8 L VBG Lactic Acid POC Sodium Sodium Potassium POC Chloride Chloride Carbon Dioxide Anion Gap Glucose POC Glucose Calcium POC WB Ioniz Calcium Phosphorus Magnesium Globulin Triglycerides Beta-Hydroxybutyrate Urine Protein 100 A Urine Glucose (UA) >=500 A Urine Ketones 20 A Hyaline Casts 6 H U Marijuana (THC) Screen Suspect positive A 02/09/18 02/08/18 02/08/18 00:45 22:55 22:55 WBC RBC Hgb Hct POC Hct 35.0 L Plt Count Gran % Lymph % (Auto) Gran # Lymph # (Auto) VBG Lactic Acid 3.1 H POC Sodium Sodium Potassium POC Chloride 94 L Chloride Carbon Dioxide Anion Gap Glucose POC Glucose 328 H Calcium POC WB Ioniz Calcium 1.09 L Phosphorus Magnesium Globulin Triglycerides Beta-Hydroxybutyrate 1.80 H Urine Protein Urine Glucose (UA) Urine Ketones Hyaline Casts U Marijuana (THC) Screen 02/08/18 02/08/18 22:55 22:55 WBC 13.6 H RBC Hgb Hct POC Hct Plt Count 518 H Gran % 90.4 H Lymph % (Auto) 7.1 L Gran # 12.3 H Lymph # (Auto) 1.0 L VBG Lactic Acid POC Sodium 129 L Sodium 128 L Potassium POC Chloride 92 L Chloride 83 L Carbon Dioxide 20 L Anion Gap 25.0 H Glucose 480 H* POC Glucose 510 H* Calcium POC WB Ioniz Calcium 0.99 L Phosphorus Magnesium Globulin 4.0 H Triglycerides Beta-Hydroxybutyrate Urine Protein Urine Glucose (UA) Urine Ketones Hyaline Casts U Marijuana (THC) Screen Meds: Medications Clonidine HCl (Catapres) 0.1 mg PO Q2HP PRN PRN Reason: Hypertension Dextrose (Dextrose 50%) 0 ml IV UD PRN PRN Reason: Hypoglycemia Diagnostic Test (Pha) (Accu-Chek) 1 each FS ACHS [facility] Last Admin: 02/10/18 08:33 Dose: 1 each Erythromycin (Erythromycin) 250 mg PO AC CEDRICK Gabapentin (Neurontin) 400 mg PO BID [facility] Last Admin: 02/10/18 08:59 Dose: Not Given Glucose (Insta-Glucose) 15 gm PO PRN PRN PRN Reason: Hypoglycemia Heparin Sodium (Porcine) (Heparin) 5,000 unit SQ Q12 [facility] Last Admin: 02/10/18 08:58 Dose: Not Given Potassium Chloride 40 meq/ (Dextrose) 520 mls @ 130 mls/hr IV ONCE ONE Stop: 02/10/18 11:59 Last Admin: 02/10/18 08:37 Dose: 130 mls/hr Insulin Glargine (Lantus) 15 unit SQ DAILY [facility] Last Admin: 02/10/18 09:39 Dose: 15 unit Insulin Human Lispro (Humalog) 0 unit SQ [facility] PRN Reason: Protocol Last Admin: 02/10/18 08:37 Dose: 4 unit Labetalol HCl (Trandate) 20 mg IV Q4HP PRN PRN Reason: Hypertension Lisinopril (Zestril) 40 mg PO DAILY [facility] Last Admin: 02/10/18 08:59 Dose: Not Given Metoclopramide HCl (Reglan) 10 mg IV Q6 [facility] Last Admin: 02/10/18 05:29 Dose: 10 mg Morphine Sulfate (Morphine) 2 mg IV Q4HP PRN PRN Reason: PAIN LEVEL > 6 Last Admin: 02/10/18 02:03 Dose: 1 mg Ondansetron HCl (Zofran) 4 mg IV Q6HP PRN PRN Reason: Nausea And Vomiting Last Admin: 02/10/18 02:03 Dose: 4 mg Pantoprazole Sodium (Protonix) 40 mg IV BID [facility] Last Admin: 02/10/18 09:39 Dose: 40 mg Ropinirole HCl (Requip) 1 mg PO HSP PRN PRN Reason: restless legs Last Admin: 02/09/18 20:22 Dose: 1 mg Sodium Chloride (Saline Flush) 10 ml IV Q8 [facility] Last Admin: 02/10/18 05:29 Dose: 10 ml Venlafaxine HCl (Effexor) 37.5 mg PO BID [facility] Last Admin: 02/10/18 08:58 Dose: Not Given Medical - PN: A/P - Time Spent With Patient Total time spent is greater than 50% in coordination of care (as documented) at patient's floor/unit and/or counseling patient: - Narrative A/P Narrative: A//P DKA- Mild, resolved back on long acting and ssi insulin, at home is on 70/30 insulin, Diabetic gastroparesis- on reglan, and zofran prn, still has some nausea, started on erythromycin today, EGD planned, will need outpatient gastric emptying study scheduled. HTN- uncontrolled bp, was on lisinopril in the past, which was stopped likely for worsening renal function, it seems his kidneys are back to normal resume same, start on amlodipine 5mg once daily today. (new drug for pt) Metabolic alkalosis/ resp alkalosis/ HAGMA- resolved. Neuropaty- on gabapentin, continue same, he does follow with Dr Rosas, neurologist, suggest outpatient follow up with her. hypomagnesmia/hypokalemia- replace IV DVT - hep sq diet clear liquid Full code EGD planned today, can be discharged home after EGD if pt remains stable. will defer to oncoming physician. I will sign off service today. Medical - PN: Qual - VTE Deep Vein Thrombosis/Pulmonary Embolism Present on Admission: No
[2018-02-10] MEDS ORDERED: DEXTROSE 50% 50 ML VIAL IV PRN ×2 (10:34→12:56)
[2018-02-10] MEDS ORDERED: DEXTROSE 31 GM ORAL.SUSP PO PRN ×2 (10:34→12:56)
[2018-02-10] MEDS ORDERED: LABETALOL 5 MG/ML ML IV PRN ×2 (10:34→12:56)
[2018-02-10] MEDS ORDERED: cloNIDine HCL 0.1 MG TABLET PO PRN ×2 (10:34→12:56)
[2018-02-10] MEDS ORDERED: ONDANSETRON 4 MG/2 ML VIAL IV PRN ×2 (10:34→12:56)
[2018-02-10] MEDS ORDERED: ERYTHROMYCIN BASE 250 MG CAPSULE PO SCH ×2 (11:30)
[2018-02-10] MEDS ORDERED: SUCCINYLCHOLINE 20 MG/ML ML IV ONE (11:55)
[2018-02-10] MEDS ORDERED: MIDAZOLAM 2 MG/2 ML VIAL IV ONE (11:55)
[2018-02-10] MEDS ORDERED: LIDOCAINE HCL/PF 100 MG/5 ML SYRINGE IV ONE (11:55)
[2018-02-10] MEDS ORDERED: PROPOFOL 200 MG/20 ML VIAL IV ONE (11:55)
[2018-02-10] MEDS ORDERED: ESMOLOL 100 MG/10 ML VIAL IV ONE (11:55)
[2018-02-10] MEDS ORDERED: METOCLOPRAMIDE 10 MG/2 ML VIAL IV SCH ×2 (12:00→18:00)
--- NOTE | 2018-02-10 12:39 | Brief Operative Note ---
Date of procedure: 02/10/18 Pre-op diagnosis: recurrent nausea and vomiting;gastroparesis Post-op diagnosis: other (erosive gastritis,gastroparesis) Procedure: esophagogastroduodenoscopy Grafts/Implants: No Anesthesia: GETA Findings: absent peristaltic activity of stomach and duodenal bulb 2 tiny ulcerations of body of stomach with surrounding erythema inadequate peristaltic activity of esophagus Complications: none Surgeon: Ronnie Dawkins Specimens Removed/Pathology: none sent Condition: stable Disposition: ICU
--- NOTE | 2018-02-10 13:28 | Operative Note ---
DATE OF OPERATION: 02/10/2018 PREOPERATIVE DIAGNOSES: Recurrent nausea and vomiting, gastroparesis. POSTOPERATIVE DIAGNOSES: Erosive gastritis with gastroparesis. PROCEDURE: Esophagogastroduodenoscopy. SURGEON: Ronnie Dawkins MD FINDINGS: Absent peristaltic activity of the stomach and duodenal bulb. Decrease in adequate peristaltic activity of the esophagus without peristaltic stripping motions; two tiny ulcerations of the body of the stomach with surrounding erythema. DESCRIPTION OF PROCEDURE: Under general anesthesia, the patient was intubated and turned to the left lateral decubitus position. A timeout procedure was carried out as per protocol. Bite block was placed. Scope was introduced through the bite block into the esophagus. The esophagus was unremarkable except that it did not have true primary peristaltic stripping type activity in order to clear the esophagus. There was no foreign body. GE junction showed mild erythema suggestive of mild reflux, but there was no nelson ulceration. The stomach was insufflated and thoroughly evaluated. There was one patchy area of erythema in the fundus and there were two tiny subcentimeter superficial ulcerations of the body of the stomach with surrounding erythema. These showed evidence of healing. There was mild erythema of the antrum leading up to the pylorus. The pylorus was widely patent and did not close sufficiently. There was minimal peristalsis of the duodenum. There was some peristaltic activity in the second and third portions of the duodenum. There was no evidence of bezoar or retained fluid. The scope was pulled back and retroflexed view was done. There was no significant hiatal hernia. The aforementioned areas of inflammation were noted. Air was suctioned from the stomach and the scope was removed. The patient tolerated the procedure well. RECOMMENDATIONS: The patient should stay on present medication. For final confirmation, he should also have a nuclear medicine gastric emptying study done as an outpatient. His diet can be advanced as tolerated on medication. I will gladly follow him up as an outpatient if needed. LCS:xavier Job ID: [id number] Doc ID: [id number] Ronnie Dawkins M.D.
[2018-02-10] MEDS ORDERED: 0.9 % SODIUM CHLORIDE 10 ML SYRINGE IV SCH (14:00)
[2018-02-10] MEDS ORDERED: LISINOPRIL 20 MG TABLET PO ONE (15:28)
[2018-02-10] MEDS: INSULIN LISPRO 1 UNIT/0.01 ML UNIT SQ SCH ×2 (17:09→22:00)
[2018-02-10] MEDS ORDERED: HEPARIN 5,000 UNIT/ML VIAL SQ SCH ×2 (21:00)
[2018-02-10] MEDS ORDERED: GABAPENTIN 400 MG CAPSULE PO SCH ×2 (21:00)
[2018-02-10] MEDS ORDERED: rOPINIRole 1 MG TABLET PO PRN ×2 (21:00)
[2018-02-10] MEDS ORDERED: PANTOPRAZOLE 40 MG VIAL IV SCH ×2 (21:00)
[2018-02-10] MEDS ORDERED: VENLAFAXINE 37.5 MG TABLET PO SCH ×2 (21:00)
--- NOTE | 2018-02-10 22:08 | Discharge Summary ---
Medical - DS: Prov Patient information: Note initiated : 02/10/18 at 10:05 pm Service Date, if different from initiated Date: [] Patient: Abdi Reese 57 y/o M admitted on 02/09/18 for N/V Abd Pain/DKA. Chief Complaint: [] Date of admission: 02/09/18 06:00 Discharge date: 02/10/18 Primary care physician: Susan Dickson Consults: 02/09/18 09:30 Consult to Physician [CONS] Routine Comment: Consulting Provider: Ronnie Dawkins Reason For Exam: Physician to Consult Medical - DS: Meds - Discharge Medications Active and Home Medications: Home Medications insulin aspart U-100 100 unit/mL subcutaneous solution 10 unit SUB-Q TID ml [History Confirmed 02/09/18 Last Taken 02/08/18 12:00] ropinirole 1 mg tablet 1 mg PO HSP PRN 11/22/17 [History Confirmed 02/09/18 Last Taken 02/08/18 20:00] Accu-Chek 1 each FS ACHS strip 01/12/18 [Rx Confirmed 02/09/18 Last Taken 02/08 06:00] Metoclopramide [Reglan] 10 mg PO Q6 #120 tab 01/12/18 [Rx Confirmed 02/09/18 Last Taken 02/07/18 08:00] Gabapentin [Neurontin] 400 mg PO BID 01/22/18 [History Confirmed 02/09/18 Last Taken 02/07/18 20:00] Zofran ODT 02/08/18 [History Last Taken Unknown] Venlafaxine [Effexor] 37.5 mg PO BID 02/09/18 [History Confirmed 02/09/18 Last Taken 02/08/18 08:00] Medical - DS: Hosp Hospital course: Discharge diagnosis * Severe volume depletion with contraction alkalosis responded to crystalloids. * Hyperosmolar nonketotic state with volume contraction responded to crystalloids * Nausea vomiting clinically improved * Diabetic gastroparesis- on reglan, and zofran prn, still has some nausea, started on erythromycin today, status post EGD. We will follow up with Dr. Alfaro as outpatient. Erosive gastritis on upper endoscopy. * HTN-poorly controlled. Continue MARTHA inhibitor/calcium channel nathanael. Follow PCP for outpatient ST and management. Started on amlodipine 5mg once daily today. (new drug for pt) * Neuropaty- on gabapentin, continue same, he does follow with Dr Rosas, neurologist, suggest outpatient follow up with her. Brief hospital course jazlyn Reese is a 57 year old pleasant male presents to the emergency room overnight with complaints of abdominal pain nausea and vomiting going on for the last 1 day. He missed his dose of insulin yesterday. The patient notes that his symptoms started on Saturday, lower abdominal pain, cramping like, no aggravating or relieving factors, associated with significant nausea vomiting. Unable to tolerate any p.o. diet. The patient therefore came to the hospital for further evaluation. The patient was admitted to the hospital approximately 3 or 4 weeks ago, with similar complaints, was diagnosed with diabetic gastroparesis, and started on Reglan. The patient has not had an endoscopy done. According to the CT scan done in the previous hospitalization there was some thickening of the lower esophageal region. The patient underwent an CT scan this visit and there was no comment made on the esophagus. No acute intra- abdominal pathology noted. The patient denies any gastric empty study performed. In the emergency room, patient was afebrile 97.8, heart rate 103, blood pressure 189/91, saturating 95% on room air. He had elevated WBC count at 13.6, hemoglobin 14.3, platelet 518. Patient's sodium was 128, potassium 3.8 chloride 83 bicarb 20 BUN 16 creatinine 1.1 glucose level very elevated at 480. He had an anion gap of 25. Lactic acid elevated at 3.1, TSH 2.27. Pro-calcitonin low at 0.1. Patient got some IV fluids and an ABG was done which showed pH of 7.56, PCO2 of 30, PO2 98 and lactic acid 1.2. Chest x-ray done this morning does not show any acute infiltrates. Given elevated hydroxybutyrate, high anion gap and elevated glucose patient was put on an insulin drip and admitted to the hospital with a diagnosis of DKA. 02/10 Pt seen exained, no acute overnight issues, some nausea overnight despite being on zofran and reglan scheduled add erythromycin FOB positive, nani peng, had peptobismal before, EGD planned for noon by surgery Has bowel and bladder incontinence too, which started around the same time, attributes this to his severe neuropathy.Bowel bladder incontince is associated with dry heaving, no headache no back pain. Patient discharging post upper endoscopy with advice to follow up with Dr. Alfaro. Discharge instructions Discharge diagnosis: . - Time Spent with Patient Total time spent providing and/or coordinating discharge services: Less than 30 minutes Medical - DS: Exam - Constitutional Vitals: Vital Signs Temp Pulse Pulse Resp BP BP BP 02/10/18 21:55 84 12 162/90 02/10/18 19:54 99.1 F H 72 20 150/78 02/10/18 16:00 97.9 F 16 151/84 02/10/18 15:26 98.3 F 16 192/104 02/10/18 13:01 78 128/100 02/10/18 12:52 80 111/83 02/10/18 12:48 125/75 02/10/18 12:41 97.5 F 80 16 143/83 02/10/18 11:19 98.7 F 16 173/94 02/10/18 09:06 193/91 02/10/18 08:00 98.5 F 90 18 191/93 02/10/18 03:30 98.8 F 89 18 167/97 02/10/18 00:07 98.2 F 96 H 14 166/92 Pulse Ox 02/10/18 21:55 02/10/18 19:54 02/10/18 16:00 98 02/10/18 15:26 97 02/10/18 13:01 98 02/10/18 12:52 96 02/10/18 12:48 02/10/18 12:41 96 02/10/18 11:19 94 02/10/18 09:06 02/10/18 08:00 93 02/10/18 03:30 95 02/10/18 00:07 92 Intake and Output 02/10/18 02/10/18 02/11/18 13:59 21:59 05:59 Intake Total 570 / 570 370 / 370 Output Total 1900 / 1900 850 / 850 Balance -1330 / -1330 -480 / -480 Intake: IV 570 / 570 Sodium Chloride 0.9% 1,000 ml @ 0 / 0 As Directed IV .Q0M [facility] Rx#: [id number] Potassium Chloride 40 Meq In 520 / 520 Dextrose 5% in Water 500 ml @ 130 mls/hr IV ONCE ONE Rx#: [id number] Oral 370 / 370 Output: Void Amount 950 / 950 850 / 850 # of times incontinent of urine 0 / 0 Urine/Stool Mix 950 / 950 Other: Meal Dinner Percent of Meal Consumed 100% Feeding Ability Independent # Voids 1 # of times incontinent of 1 Bowels Weight 245 lb 6.4 oz Patient Weight 02/11/18 05:59 Weight 245 lb 6.4 oz Medical - DS: Data Labs on day of discharge: Labs from last 24 hours 02/10/18 02/10/18 04:00 04:00 WBC 11.9 H RBC 3.70 L Hgb 11.6 L Hct 33.8 L MCV 91.3 MCH 31.4 MCHC 34.4 RDW 14.0 Plt Count 401 MPV 7.6 Gran % 79.5 H Lymph % (Auto) 14.4 L Mcdowell % (Auto) 5.6 Eos % (Auto) 0.2 Baso % (Auto) 0.3 Gran # 9.4 H Lymph # (Auto) 1.7 Mcdowell # (Auto) 0.7 Eos # (Auto) 0 Baso # (Auto) 0 Sodium 135 Potassium 3.1 L Chloride 96 Carbon Dioxide 26 Anion Gap 13.0 BUN 11 Creatinine 0.8 GFR Calculation 98 Glucose 160 H Uric Acid 5.3 Calcium 8.4 L Phosphorus 2.7 Magnesium 1.8 Total Bilirubin 0.4 Direct Bilirubin < 0.2 GGT 19 AST 20 ALT 14 Alkaline Phosphatase 77 Lactate Dehydrogenase 196 Total Protein 6.6 Albumin 3.6 Globulin 3.0 Albumin/Globulin Ratio 1.2 Triglycerides 190 H Medical - DS: A/P - Patient/Caregiver Discharge Instructions Activity: increase activity as tolerated Diet: Regular Diet Additional Instructions: Dr. Alfaro as outpatient Continue 5 mg of amlodipine daily Follow-up PCP in 5 days Continue erythromycin with meals Protonix 40 daily Prescriptions: amLODIPine [Norvasc] 5 mg PO DAILY #30 tab Erythromycin Base [Erythromycin] 250 mg PO AC #30 cap Pantoprazole [Protonix] 40 mg PO QAMAC #30 tab - Follow up Plan Follow up with: Susan Dickson [Primary Care Provider] - 02/19/18 1:30 pm Rafael Bonilla MD [Physician] - (Dr. Bonilla's office will contact you tomorrow to schedule an appointment. If you do not hear from them in a couple of days please call .) Disposition: Home, Self-Care Prognosis: Fair Rehab Potential: Fair I certify that the patient requires SNF services: No Overall status at discharge: patient is progressing back to baseline Medical - DS: Qual - VTE Deep Vein Thrombosis/Pulmonary Embolism Present on Admission: No
[2018-02-11] MEDS ORDERED: LISINOPRIL 20 MG TABLET PO SCH ×2 (09:00)
[2018-02-11] MEDS ORDERED: INSULIN GLARGINE, HUMAN 1 UNIT/0.01 ML SQ SCH ×2 (09:00)
== END 2018-02-10 22:22 | disposition home or self-care (01) ==
LOC: ICU 22:35 → ED 22:35 → ICU 02-09 05:55 → MEDSUR 02-10 16:10
PROVIDERS: ADMIT Internal Medicine; ATTEND Internal Medicine